=== PATIENT | female | born 1950 | race American Indian/Alaskan Native ===

== ENCOUNTER 2016-09-04 08:58 | Outpatient (CLI) | payer MEDICARE ==
--- NOTE | 2016-09-04 10:13 | Fluoroscopy Report ---
Barium swallow: History: Dysphagia of solids. Findings: There is delayed transit of barium noted through the upper thoracic esophagus. There is spasm noted in the upper thoracic esophagus with mucosal irregularity. No intrinsic mass is seen. There is marked gastroesophageal reflux noted. No hiatal hernia. Impression: Gastroesophageal reflux with evidence of esophagitis and spasm at proximal thoracic esophagus. Esophagoscopy may be recommended for further evaluation.
== END 2016-09-04 08:59 | disposition home or self-care (01) ==
LOC: FLUORO 08:58
PROVIDERS: ATTEND Internal Medicine Gastroenterology
DX: K21.0 Gastro-esophageal reflux disease with esophagitis (principal)
CPT/HCPCS: 74220

== ENCOUNTER 2018-05-29 04:31 | Emergency (ER) | payer MEDICARE ==
[2018-05-29] MEDS ORDERED: ATROVENT IH ONE (04:52)
[2018-05-29] MEDS ORDERED: SOLU-Medrol IV ONE (04:52)
[2018-05-29] MEDS ORDERED: PROVENTIL IH ONE (04:52)
[2018-05-29] MEDS ORDERED: MAGNESIUM SULFATE 1 GM in NACL 0.9% 50 ML IV ONE (04:52)
[2018-05-29 05:07] LABS: Basophils # (Auto) 0.1 K/mm3 (0.0-0.1); Basophils % (Auto) 0.6 % (0.0-1.8); Eosinophils # (Auto) 0.4 K/mm3 (0.0-0.4); Eosinophils % (Auto) 4.1 % (0.0-4.3); Hematocrit 40.9 % (30.3-42.9); Hemoglobin 13.7 gm/dl (10.1-14.3); Lymphocytes # (Auto) 1.6 K/mm3 (1.2-5.4); Lymphocytes % (Auto) 18.9 % (13.4-35.0); Mean Corpuscular HGB Conc 34 % (30-34); Mean Corpuscular Hemoglobin 31 pg (28-32); Mean Corpuscular Volume 91 fl (79-97); Monocytes # (Auto) 0.5 K/mm3 (0.0-0.8); Monocytes % (Auto) 5.5 % (0.0-7.3); Platelet Count 249 K/mm3 (140-440); Red Cell Distribution Width 14.2 % (13.2-15.2)
[2018-05-29 05:29] LABS: BUN/Creatinine Ratio 19; Blood Urea Nitrogen 13 mg/dL (7-17); Calcium 8.8 mg/dL (8.4-10.2); Hemolysis Index 9
[2018-05-29] MEDS ORDERED: NORCO 5/325 PO ONE (05:54)
--- NOTE | 2018-05-29 06:06 | Emergency Department Report ---
ED Shortness of Breath HPI - General Chief Complaint: Dyspnea/Respdistress Stated Complaint: NEREYDA Time Seen by Provider: 05/29/18 04:52 Source: patient, EMS Mode of arrival: Stretcher Limitations: No Limitations - History of Present Illness Initial Comments: Patient is a 68-year-old Female with past medical history of COPD who is here for exacerbation. Patient states she was at [facility] last week and diagnosed with bronchitis and started on steroids. Patient states he does continue to have a cough that is productive of white sputum. Patient states this chest pain with the cough as well. Patient states her chest wall is tender from all the coughing. Patient denies any fevers chills nausea vomiting at this time. - Related Data Home Medications Medication Instructions Recorded Confirmed Last Taken Lisinopril [Zestril TAB] 40 mg PO DAILY@1800 02/23/13 10/07/17 12/19/14 Metoprolol [Lopressor TAB] 100 mg PO DAILY 12/20/14 10/07/17 12/19/14 cloNIDine [Catapres] 0.1 mg PO QID PRN 12/20/14 10/07/17 12/19/14 Amlodipine Besylate [Norvasc] 10 mg PO QAM 04/01/17 10/07/17 Unknown Doxazosin [Cardura] 4 mg PO QDAY 04/01/17 10/07/17 Unknown Ranitidine HCl [Zantac] 300 mg PO HS 04/01/17 10/07/17 03/31/17 Spironolactone [Aldactone] 25 mg PO QAM 04/01/17 10/07/17 Unknown Fluticasone [Flonase] 2 spray NS QDAY 10/07/17 10/07/17 Unknown Umeclidinium Brm/Vilanterol Tr 1 each IH QDAY 10/07/17 10/07/17 Unknown [Anoro Ellipta 62.5-25 Mcg INH] Previous Rx's Medication Instructions Recorded Last Taken Type ALBUTEROL Inhaler (OR & NICU) 2 puff IH Q6H PRN #1 inha 07/04/17 Unknown Rx [ProAir HFA Inhaler] Ipratropium/Albuterol Sulfate 1 ampul IH Q6HRT #30 ampul.neb 07/04/17 Unknown Rx [DUONEB *Not for PRN Use*] Mometasone/Formoterol [Dulera 200 2 puff IH BID #1 hfa.aer.ad 07/04/17 Unknown Rx Mcg/5 Mcg Inhaler] Azithromycin [Zithromax Z-NAVA] 0 mg PO DAILY #1 pack 10/09/17 Unknown Rx Benzonatate [Tessalon Perles] 100 mg PO Q8HR #30 capsule 10/09/17 Unknown Rx HYDROcodone/APAP 10-325 [[place] 1 each PO Q6HR PRN #14 tablet 10/09/17 Unknown Rx 10-325 mg TAB] LORazepam [Ativan] 0.5 mg PO Q4H PRN #14 tablet 10/09/17 Unknown Rx Nicotine [Habitrol] 14 mg TD QDAY #30 patch 10/09/17 Unknown Rx guaiFENesin/CODEINE [Robitussin AC] 5 ml PO Q6H #120 ml 10/09/17 Unknown Rx levoFLOXacin [Levaquin] 750 mg PO QDAY #5 tablet 10/09/17 Unknown Rx predniSONE [Deltasone] 10 mg PO .TAPER #48 tab 10/09/17 Unknown Rx Allergies Allergy/AdvReac Type Severity Reaction Status Date / Time Penicillins Allergy Unknown Verified 08/26/15 09:15 ED Review of Systems ROS: Stated complaint: NERYEDA Other details as noted in HPI Comment: All other systems reviewed and negative ED Past Medical Hx - Past Medical History Previous Medical History?: Yes Hx Hypertension: Yes Hx Heart Attack/AMI: No Hx Congestive Heart Failure: Yes Hx Diabetes: Yes Hx Deep Vein Thrombosis: No Hx Pulmonary Embolism: No Hx GERD: Yes Hx Liver Disease: No Hx Arthritis: Yes Hx Asthma: No Hx COPD: Yes Hx Tuberculosis: No Hx HIV: No Additional medical history: high cholesterol. anxiety. VERTIGO - Surgical History Past Surgical History?: Yes Hx Coronary Stent: No Hx Pacemaker: No Hx Internal Defibrillator: No Additional Surgical History: hysterectomy - Social History Smoking Status: Current Some Day Smoker Substance Use Type: None - Medications Home Medications: Home Medications Medication Instructions Recorded Confirmed Last Taken Type Lisinopril [Zestril TAB] 40 mg PO DAILY@1800 02/23/13 10/07/17 12/19/14 History Metoprolol [Lopressor TAB] 100 mg PO DAILY 12/20/14 10/07/17 12/19/14 History cloNIDine [Catapres] 0.1 mg PO QID PRN 12/20/14 10/07/17 12/19/14 History Amlodipine Besylate [Norvasc] 10 mg PO QAM 04/01/17 10/07/17 Unknown History Doxazosin [Cardura] 4 mg PO QDAY 04/01/17 10/07/17 Unknown History Ranitidine HCl [Zantac] 300 mg PO HS 04/01/17 10/07/17 03/31/17 History Spironolactone [Aldactone] 25 mg PO QAM 04/01/17 10/07/17 Unknown History ALBUTEROL Inhaler (OR & NICU) 2 puff IH Q6H PRN #1 inha 07/04/17 10/07/17 Unknown Rx [ProAir HFA Inhaler] Ipratropium/Albuterol Sulfate 1 ampul IH Q6HRT #30 ampul.neb 07/04/17 10/07/17 Unknown Rx [DUONEB *Not for PRN Use*] Mometasone/Formoterol [Dulera 200 2 puff IH BID #1 hfa.aer.ad 07/04/17 10/07/17 Unknown Rx Mcg/5 Mcg Inhaler] Fluticasone [Flonase] 2 spray NS QDAY 10/07/17 10/07/17 Unknown History Umeclidinium Brm/Vilanterol Tr 1 each IH QDAY 10/07/17 10/07/17 Unknown History [Anoro Ellipta 62.5-25 Mcg INH] Azithromycin [Zithromax Z-NAVA] 0 mg PO DAILY #1 pack 10/09/17 Unknown Rx Benzonatate [Tessalon Perles] 100 mg PO Q8HR #30 capsule 10/09/17 Unknown Rx HYDROcodone/APAP 10-325 [[place] 1 each PO Q6HR PRN #14 tablet 10/09/17 Unknown Rx 10-325 mg TAB] LORazepam [Ativan] 0.5 mg PO Q4H PRN #14 tablet 10/09/17 Unknown Rx Nicotine [Habitrol] 14 mg TD QDAY #30 patch 10/09/17 Unknown Rx guaiFENesin/CODEINE [Robitussin AC] 5 ml PO Q6H #120 ml 05/09/18 Unknown Rx levoFLOXacin [Levaquin] 750 mg PO QDAY #5 tablet 10/09/17 Unknown Rx predniSONE [Deltasone] 10 mg PO .TAPER #48 tab 10/09/17 Unknown Rx ED Physical Exam - General Limitations: No Limitations General appearance: alert, in no apparent distress - Head Head exam: Present: atraumatic, normocephalic - Eye Eye exam: Present: normal appearance - ENT ENT exam: Present: mucous membranes moist - Neck Neck exam: Present: normal inspection - Respiratory Respiratory exam: Present: wheezes, chest wall tenderness. Absent: normal lung sounds bilaterally, respiratory distress, rales, rhonchi, stridor - Cardiovascular Cardiovascular Exam: Present: regular rate, normal rhythm. Absent: systolic murmur, diastolic murmur, rubs, gallop - GI/Abdominal GI/Abdominal exam: Present: soft, normal bowel sounds. Absent: distended, tenderness, guarding, rebound - Extremities Exam Extremities exam: Present: normal inspection - Back Exam Back exam: Present: normal inspection - Neurological Exam Neurological exam: Present: alert, oriented X3 - Psychiatric Psychiatric exam: Present: normal affect, normal mood - Skin Skin exam: Present: warm, dry, intact, normal color. Absent: rash ED Course Vital Signs 05/29/18 04:42 Temperature 97.9 F Pulse Rate 81 Respiratory 20 Rate Blood Pressure 120/54 Blood Pressure 120/54 [Left] O2 Sat by Pulse 98 Oximetry ED Medical Decision Making - Lab Data Result diagrams: 05/29/18 05:01 05/29/18 05:01 - EKG Data -: EKG Interpreted by La - EKG Data 05/29/18 06:06 EKG shows sinus rhythm a rate of 72, waxes no intervals no ST segment elevation or depressions. Interpretation is 528 - Radiology Data Chest x-ray shows no acute process - Medical Decision Making Patient is receiving hour-long never the last treatment. Patient's will be reevaluated afterwards. Patient also has a d-dimer is pending since the patient told the nurse that she was having some pleuritic pain Critical care attestation.: If time is entered above; I have spent that time in minutes in the direct care of this critically ill patient, excluding procedure time. ED Disposition Clinical Impression: COPD exacerbation Condition: Stable Instructions: Chronic Obstructive Pulmonary Disease (ED)
--- NOTE | 2018-05-29 06:21 | XRay Report ---
FINAL REPORT PROCEDURE: XR CHEST 1V AP TECHNIQUE: Chest radiograph anteroposterior view. CPT 56244 HISTORY: cough, wheeze COMPARISON: 10/07/2017 FINDINGS: Heart: Normal. Mediastinum/Vessels: Normal. Lungs/Pleural space: Normal. Bony thorax: No acute osseous abnormality. Life support devices: None. IMPRESSION: No acute cardiopulmonary abnormality.
--- NOTE | 2018-05-29 07:29 | Emergency Department Report ---
Blank Doc - Documentation Documentation: 68-year-old female with history of COPD signed out to me by Dr. Reed. Patient has received albuterol and Atrovent, solu Medrol, magnesium sulfate. The patient currently is in no respiratory distress. Lungs are clear, wheezing resolved. Speaking in full sentences. O2 sats 94% on room air. Chest x-ray normal, d-dimer negative. Patient states she has prednisone at home to take as needed. Instructed the patient to take 40 mg daily for the next 5 days.
[2018-05-29 07:53] VITALS: BP 148/57
== END 2018-05-29 08:13 | disposition home or self-care (01) ==
LOC: ED 04:31
DX: J44.1 Chronic obstructive pulmonary disease with (acute) exacerbation (principal); I11.0 Hypertensive heart disease with heart failure; I50.9 Heart failure, unspecified; E11.9 Type 2 diabetes mellitus without complications; K21.9 Gastro-esophageal reflux disease without esophagitis; M19.90 Unspecified osteoarthritis, unspecified site; E78.00 Pure hypercholesterolemia, unspecified; F41.9 Anxiety disorder, unspecified; F17.200 Nicotine dependence, unspecified, uncomplicated; Z90.710 Acquired absence of both cervix and uterus; Z88.0 Allergy status to penicillin
CPT/HCPCS: 36415; 71045; 80048; 83880; 85025; 85379; 93005; 93010; 94640; 96365; 96375; 99284; J2930; J3475

== ENCOUNTER 2019-07-01 09:43 | Observation (INO) | payer MEDICARE ==
[2019-07-01] MEDS ORDERED: ASPIRIN 325 MG TAB PO ONE (09:52)
[2019-07-01 10:25] LABS: Basophils # (Auto) 0.2 K/mm3 (0.0-0.1); Eosinophils # (Auto) 0.1 K/mm3 (0.0-0.4); Eosinophils % (Auto) 1.6 % (0.0-4.3); Hematocrit 37.5 % (30.3-42.9); Hemoglobin 12.4 gm/dl (10.1-14.3); Lymphocytes # (Auto) 3.5 K/mm3 (1.2-5.4); Lymphocytes % (Auto) 43.9 % (13.4-35.0); Mean Corpuscular HGB Conc 33 % (30-34); Mean Corpuscular Volume 90 fl (79-97); Monocytes # (Auto) 0.5 K/mm3 (0.0-0.8); Monocytes % (Auto) 6.4 % (0.0-7.3); Platelet Count 291 K/mm3 (140-440); Red Blood Count 4.19 M/mm3 (3.65-5.03); Red Cell Distribution Width 14.7 % (13.2-15.2)
[2019-07-01 10:47] LABS: BUN/Creatinine Ratio 15; Blood Urea Nitrogen 12 mg/dL (7-17); Calcium 9.7 mg/dL (8.4-10.2); Hemolysis Index 162
[2019-07-01 11:02] LABS: INR 1.04 (0.87-1.13)
[2019-07-01 11:03] LABS: Partial Thromboplastin Time 33.9 Sec. (24.2-36.6)
--- NOTE | 2019-07-01 11:07 | XRay Report ---
CHEST 1 VIEW INDICATION / CLINICAL INFORMATION: Chest Pain. COMPARISON: 06/05/2018 FINDINGS: SUPPORT DEVICES: None. HEART / MEDIASTINUM: No significant abnormality. LUNGS / PLEURA: No significant pulmonary or pleural abnormality. No pneumothorax. ADDITIONAL FINDINGS: No significant additional findings. IMPRESSION: No acute pulmonary or pleural abnormality. No change from 06/05/2018 Signer Name: Nilesh Ordonez MD FACR Signed: 07/01/2019 11:03 AM Workstation Name: [id number]
[2019-07-01 11:08] LABS: Creatine Kinase MB 1.4 ng/mL (0.0-4.0)
[2019-07-01 11:10] LABS: Alanine Aminotransferase 17 units/L (7-56); Albumin 3.8 g/dL (3.9-5)
[2019-07-01 11:11] LABS: Bilirubin,Direct < 0.2 mg/dL (0-0.2)
--- NOTE | 2019-07-01 11:35 | Emergency Department Report ---
ED General Adult HPI - General Chief complaint: Chest Pain Stated complaint: A1C 4 Time Seen by Provider: 07/01/19 10:01 Source: patient Mode of arrival: Ambulatory Limitations: No Limitations - History of Present Illness Severity scale (0 -10): 8 - Related Data Home Medications Medication Instructions Recorded Confirmed Last Taken lisinopriL [Zestril TAB] 40 mg PO DAILY@1800 02/23/13 06/05/18 05/28/18 Metoprolol [Lopressor TAB] 100 mg PO DAILY 12/20/14 06/05/18 05/28/18 cloNIDine [Catapres] 0.1 mg PO QID PRN 12/20/14 06/05/18 12/19/14 Amlodipine Besylate [Norvasc] 10 mg PO QAM 04/01/17 06/05/18 05/28/18 Doxazosin [Cardura] 4 mg PO QDAY 04/01/17 06/05/18 05/28/18 Spironolactone [Aldactone] 25 mg PO QAM 04/01/17 06/05/18 05/28/18 Fluticasone [Flonase] 2 spray NS QDAY 10/07/17 06/05/18 05/28/18 Umeclidinium Brm/Vilanterol Tr 1 each IH QDAY 10/07/17 06/05/18 05/28/18 [Anoro Ellipta 62.5-25 Mcg INH] Ativan 1 mg .ROUTE TID PRN 06/05/18 06/05/18 06/03/18 21:00 predniSONE [Deltasone] 10 mg PO .TAPER 06/05/18 06/05/18 Unknown Previous Rx's Medication Instructions Recorded Last Taken Type Albuterol INH(or & Nicu Only) 2 puff IH Q6H PRN #1 inha 07/04/17 05/28/18 Rx [ProAir HFA Inhaler] Ipratropium/Albuterol Sulfate 1 ampul IH Q6HRT #30 ampul.neb 07/04/17 05/28/18 Rx [DUONEB *Not for PRN Use*] Mometasone/Formoterol [Dulera 200 2 puff IH BID #1 hfa.aer.ad 07/04/17 05/28/18 Rx Mcg/5 Mcg Inhaler] Benzonatate [Tessalon Perles] 100 mg PO Q8HR #30 capsule 10/09/17 05/28/18 Rx Azithromycin [Zithromax TAB] 250 mg PO QDAY #2 tablet 06/09/18 Unknown Rx Budesonide [Pulmicort Respules] 0.5 mg IH Q12HRT #60 nebu 06/09/18 Unknown Rx Pantoprazole [Protonix TAB] 40 mg PO QDAY #30 tablet 06/09/18 Unknown Rx Prednisone [predniSONE 10 mg 10 mg PO .TAPER #1 tab.ds.pk 06/09/18 Unknown Rx (6-Day Pack, 21 Tabs)] cephALEXin [Keflex] 500 mg PO Q6HR #28 capsule 06/09/18 Unknown Rx Allergies Allergy/AdvReac Type Severity Reaction Status Date / Time Penicillins Allergy Unknown Verified 08/26/15 09:15 ED Review of Systems ROS: Stated complaint: A1C 4 Other details as noted in HPI ED Past Medical Hx - Past Medical History Previous Medical History?: Yes Hx Hypertension: Yes Hx Heart Attack/AMI: No Hx Congestive Heart Failure: Yes Hx Diabetes: Yes Hx Deep Vein Thrombosis: No Hx Pulmonary Embolism: No Hx GERD: Yes Hx Liver Disease: No Hx Arthritis: Yes Hx Asthma: No Hx COPD: Yes Hx Tuberculosis: No Hx HIV: No Additional medical history: high cholesterol. anxiety. VERTIGO - Surgical History Past Surgical History?: Yes Hx Coronary Stent: No Hx Pacemaker: No Hx Internal Defibrillator: No Additional Surgical History: hysterectomy - Social History Smoking Status: Light Tobacco Smoker - Medications Home Medications: Home Medications Medication Instructions Recorded Confirmed Last Taken Type lisinopriL [Zestril TAB] 40 mg PO DAILY@1800 02/23/13 06/05/18 05/28/18 History Metoprolol [Lopressor TAB] 100 mg PO DAILY 12/20/14 06/05/18 05/28/18 History cloNIDine [Catapres] 0.1 mg PO QID PRN 12/20/14 06/05/18 12/19/14 History Amlodipine Besylate [Norvasc] 10 mg PO QAM 04/01/17 06/05/18 05/28/18 History Doxazosin [Cardura] 4 mg PO QDAY 04/01/17 06/05/18 05/28/18 History Spironolactone [Aldactone] 25 mg PO QAM 04/01/17 06/05/18 05/28/18 History Albuterol INH(or & Nicu Only) 2 puff IH Q6H PRN #1 inha 07/04/17 06/05/18 05/28/18 Rx [ProAir HFA Inhaler] Ipratropium/Albuterol Sulfate 1 ampul IH Q6HRT #30 ampul.neb 07/04/17 06/05/18 05/28/18 Rx [DUONEB *Not for PRN Use*] Mometasone/Formoterol [Dulera 200 2 puff IH BID #1 hfa.aer.ad 07/04/17 06/05/18 05/28/18 Rx Mcg/5 Mcg Inhaler] Fluticasone [Flonase] 2 spray NS QDAY 10/07/17 06/05/18 05/28/18 History Umeclidinium Brm/Vilanterol Tr 1 each IH QDAY 10/07/17 06/05/18 05/28/18 History [Anoro Ellipta 62.5-25 Mcg INH] Benzonatate [Tessalon Perles] 100 mg PO Q8HR #30 capsule 10/09/17 06/05/18 05/28/18 Rx Ativan 1 mg .ROUTE TID PRN 06/05/18 06/05/18 06/03/18 21:00 History predniSONE [Deltasone] 10 mg PO .TAPER 06/05/18 06/05/18 Unknown History Azithromycin [Zithromax TAB] 250 mg PO QDAY #2 tablet 06/09/18 Unknown Rx Budesonide [Pulmicort Respules] 0.5 mg IH Q12HRT #60 nebu 06/09/18 Unknown Rx Pantoprazole [Protonix TAB] 40 mg PO QDAY #30 tablet 06/09/18 Unknown Rx Prednisone [predniSONE 10 mg 10 mg PO .TAPER #1 tab.ds.pk 06/09/18 Unknown Rx (6-Day Pack, 21 Tabs)] cephALEXin [Keflex] 500 mg PO Q6HR #28 capsule 06/09/18 Unknown Rx ED Physical Exam - General Limitations: No Limitations ED Course Vital Signs 07/01/19 07/01/19 10:10 10:16 Pulse Rate 82 Respiratory 15 Rate Blood Pressure 152/117 [Right] O2 Sat by Pulse 98 100 Oximetry ED Medical Decision Making - Lab Data Result diagrams: 07/01/19 10:03 07/01/19 10:03 Laboratory Results - last 24 hr 07/01/19 07/01/19 07/01/19 10:03 10:03 10:09 WBC 8.1 RBC 4.19 Hgb 12.4 Hct 37.5 MCV 90 MCH 30 MCHC 33 RDW 14.7 Plt Count 291 Lymph % (Auto) 43.9 H [place] % (Auto) 6.4 Eos % (Auto) 1.6 Baso % (Auto) 2.0 H Lymph # 3.5 [place] # 0.5 Eos # 0.1 Baso # 0.2 H Seg Neutrophils % 46.1 Seg Neutrophils # 3.7 PT INR APTT Sodium 142 Potassium 4.4 Chloride 103.7 Carbon Dioxide 21 L Anion Gap 22 BUN 12 Creatinine 0.8 Estimated GFR > 60 BUN/Creatinine Ratio 15 Glucose 110 H Calcium 9.7 Magnesium Total Bilirubin Direct Bilirubin AST ALT Alkaline Phosphatase Total Creatine Kinase CK-MB (CK-2) CK-MB (CK-2) Rel Index Troponin T < 0.010 NT-Pro-B Natriuret Pep Total Protein Albumin Albumin/Globulin Ratio Blood Type A POSITIVE Antibody Screen Negative 07/01/19 07/01/19 10:27 10:27 WBC RBC Hgb Hct MCV MCH MCHC RDW Plt Count Lymph % (Auto) [place] % (Auto) Eos % (Auto) Baso % (Auto) Lymph # [place] # Eos # Baso # Seg Neutrophils % Seg Neutrophils # PT 13.7 INR 1.04 APTT 33.9 Sodium Potassium Chloride Carbon Dioxide Anion Gap BUN Creatinine Estimated GFR BUN/Creatinine Ratio Glucose Calcium Magnesium 1.80 Total Bilirubin 0.30 Direct Bilirubin < 0.2 AST 17 ALT 17 Alkaline Phosphatase 55 Total Creatine Kinase 135 CK-MB (CK-2) 1.4 CK-MB (CK-2) Rel Index 1.0 Troponin T NT-Pro-B Natriuret Pep 63.09 Total Protein 6.8 Albumin 3.8 L Albumin/Globulin Ratio 1.3 Blood Type Antibody Screen Critical care attestation.: If time is entered above; I have spent that time in minutes in the direct care of this critically ill patient, excluding procedure time. ED Disposition Condition: Stable Referrals: PRIMARY CARE, [Primary Care Provider] - 3-5 Days
[2019-07-01 12:20] LABS: Bacteria,Urine 1+ /HPF (Negative); Mucus,Urine FEW /HPF; WBC,Urine < 1.0 /HPF (0.0-6.0)
[2019-07-01 12:21] LABS: Bilirubin,Urine NEG (Negative); Blood,Urine NEG (Negative); Color,Urine Yellow (Yellow); Protein,Urine <15 mg/dL mg/dL (Negative); Urobilinogen,Urine < 2.0 mg/dL (<2.0)
[2019-07-01] MEDS ORDERED: PANTOPRAZOLE 40 MG INJ IV ONE (12:48)
[2019-07-01] MEDS ORDERED: MORPHINE 2 MG/1 ML INJ IV ONE (12:48)
[2019-07-01] MEDS ORDERED: ONDANSETRON 4 MG/2 ML INJ IV ONE (12:48)
--- NOTE | 2019-07-01 12:51 | Emergency Department Report ---
ED Chest Pain HPI - General Chief Complaint: Chest Pain Stated Complaint: A1C 4 Time Seen by Provider: 07/01/19 10:01 Source: patient Mode of arrival: Ambulatory Limitations: No Limitations - History of Present Illness Initial Comments: This is a 69-year-old female with a history of COPD and some previous office- based evaluation for chest pain. She was recently admitted to this hospital with a pulmonary infiltrate. As per the discharge summary earlier this month: - Discharge Diagnoses (1) Acute respiratory failure with hypoxia Status: Acute (2) COPD exacerbation Status: Acute (3) On home O2 Status: Chronic (4) Pneumonia Status: Acute Qualifiers: Laterality: right Lung location: lower lobe of lung (5) Acute on chronic respiratory failure with hypoxemia Status: Acute (6) COPD exacerbation Status: Acute (7) Nicotine dependence unspecified, with withdrawal Status: Acute Qualifiers: Nicotine product type: cigarettes Qualified Code(s): F17.213 - Nicotine dependence, cigarettes, with withdrawal She reports seeing [place] [facility] in the past for evaluation of chest pain. She does not think she's had a heart catheterization. She does not have a known history of coronary artery disease. She has multiple risk factors to her diabetes hypertension and smoking. She states that extensively she was sent by Dr. Acosta because she had a hemoglobin of 4.3/13.8 in their office. However, laboratory testing here did not replicate this reading. The patient states that she has been having chest pain intermittently for quite some time. She states that she does not know if it secondary to her COPD or her reflux. However it is a short associated with shortness of breath and feels like "an elephant on my chest" in the substernal region. She states that she is currently having chest pain of this nature. However, it is been a very recurrent process. The pain is nonpleuritic and nonexertional in nature. Patient also complains of exacerbation of COPD and her reflux. She further complains of generalized weakness. She denies recent fever or chills. MD Complaint: chest pain -: month(s) Onset: during rest Pain Location: substernal Pain Radiation: none Severity: moderate, severe Severity scale (0 -10): 8 Quality: heaviness Consistency: constant Improves With: nothing Worsens With: nothing Context: other (COPD/reflux) re: dyspnea. denies: nausea, vomting, diaphoresis Other Symptoms: cough. denies: fever, syncope Treatments Prior to Arrival: none - Related Data Home Medications Medication Instructions Recorded Confirmed Last Taken lisinopriL [Zestril TAB] 40 mg PO DAILY@1800 02/23/13 06/05/18 05/28/18 Metoprolol [Lopressor TAB] 100 mg PO DAILY 12/20/14 06/05/18 05/28/18 cloNIDine [Catapres] 0.1 mg PO QID PRN 12/20/14 06/05/18 12/19/14 Amlodipine Besylate [Norvasc] 10 mg PO QAM 04/01/17 06/05/18 05/28/18 Doxazosin [Cardura] 4 mg PO QDAY 04/01/17 06/05/18 05/28/18 Spironolactone [Aldactone] 25 mg PO QAM 04/01/17 06/05/18 05/28/18 Fluticasone [Flonase] 2 spray NS QDAY 10/07/17 06/05/18 05/28/18 Umeclidinium Brm/Vilanterol Tr 1 each IH QDAY 10/07/17 06/05/18 05/28/18 [Anoro Ellipta 62.5-25 Mcg INH] Ativan 1 mg .ROUTE TID PRN 06/05/18 06/05/18 06/03/18 21:00 predniSONE [Deltasone] 10 mg PO .TAPER 06/05/18 06/05/18 Unknown Previous Rx's Medication Instructions Recorded Last Taken Type Albuterol INH(or & Nicu Only) 2 puff IH Q6H PRN #1 inha 07/04/17 05/28/18 Rx [ProAir HFA Inhaler] Ipratropium/Albuterol Sulfate 1 ampul IH Q6HRT #30 ampul.neb 07/04/17 05/28/18 Rx [DUONEB *Not for PRN Use*] Mometasone/Formoterol [Dulera 200 2 puff IH BID #1 hfa.aer.ad 07/04/17 05/28/18 Rx Mcg/5 Mcg Inhaler] Benzonatate [Tessalon Perles] 100 mg PO Q8HR #30 capsule 10/09/17 05/28/18 Rx Azithromycin [Zithromax TAB] 250 mg PO QDAY #2 tablet 06/09/18 Unknown Rx Budesonide [Pulmicort Respules] 0.5 mg IH Q12HRT #60 nebu 06/09/18 Unknown Rx Pantoprazole [Protonix TAB] 40 mg PO QDAY #30 tablet 06/09/18 Unknown Rx Prednisone [predniSONE 10 mg 10 mg PO .TAPER #1 tab.ds.pk 06/09/18 Unknown Rx (6-Day Pack, 21 Tabs)] cephALEXin [Keflex] 500 mg PO Q6HR #28 capsule 06/09/18 Unknown Rx Allergies Allergy/AdvReac Type Severity Reaction Status Date / Time Penicillins Allergy Unknown Verified 08/26/15 09:15 Heart Score - HEART Score History: Highly suspicious EKG: Non-specific Age: > 65 Risk factors: > 3 risk factors or hx of atherosclerotic disease Troponin: < normal limit HEART Score: 7 - Critical Actions Critical Actions: >7 pts:50-65% risk of adverse cardiac event. Early invasive measures ED Review of Systems ROS: Stated complaint: A1C 4 Other details as noted in HPI Constitutional: denies: chills, fever Eyes: denies: eye pain, eye discharge, vision change ENT: denies: ear pain, throat pain Respiratory: cough, shortness of breath. denies: wheezing Cardiovascular: chest pain. denies: palpitations Endocrine: no symptoms reported Gastrointestinal: denies: abdominal pain, nausea, diarrhea Genitourinary: denies: urgency, dysuria, discharge Musculoskeletal: denies: back pain, joint swelling, arthralgia Skin: denies: rash, lesions Neurological: denies: headache, weakness, paresthesias Psychiatric: denies: anxiety, depression Hematological/Lymphatic: denies: easy bleeding, easy bruising ED Past Medical Hx - Past Medical History Previous Medical History?: Yes Hx Hypertension: Yes Hx Heart Attack/AMI: No Hx Congestive Heart Failure: Yes Hx Diabetes: Yes Hx Deep Vein Thrombosis: No Hx Pulmonary Embolism: No Hx GERD: Yes Hx Liver Disease: No Hx Arthritis: Yes Hx Asthma: No Hx COPD: Yes Hx Tuberculosis: No Hx HIV: No Additional medical history: high cholesterol. anxiety. VERTIGO - Surgical History Past Surgical History?: Yes Hx Coronary Stent: No Hx Pacemaker: No Hx Internal Defibrillator: No Additional Surgical History: hysterectomy - Social History Smoking Status: Light Tobacco Smoker - Medications Home Medications: Home Medications Medication Instructions Recorded Confirmed Last Taken Type lisinopriL [Zestril TAB] 40 mg PO DAILY@1800 02/23/13 06/05/18 05/28/18 History Metoprolol [Lopressor TAB] 100 mg PO DAILY 12/20/14 06/05/18 05/28/18 History cloNIDine [Catapres] 0.1 mg PO QID PRN 12/20/14 06/05/18 12/19/14 History Amlodipine Besylate [Norvasc] 10 mg PO QAM 04/01/17 06/05/18 05/28/18 History Doxazosin [Cardura] 4 mg PO QDAY 04/01/17 06/05/18 05/28/18 History Spironolactone [Aldactone] 25 mg PO QAM 04/01/17 06/05/18 05/28/18 History Albuterol INH(or & Nicu Only) 2 puff IH Q6H PRN #1 inha 07/04/17 06/05/18 05/28/18 Rx [ProAir HFA Inhaler] Ipratropium/Albuterol Sulfate 1 ampul IH Q6HRT #30 ampul.neb 07/04/17 06/05/18 05/28/18 Rx [DUONEB *Not for PRN Use*] Mometasone/Formoterol [Dulera 200 2 puff IH BID #1 hfa.aer.ad 07/04/17 06/05/18 05/28/18 Rx Mcg/5 Mcg Inhaler] Fluticasone [Flonase] 2 spray NS QDAY 10/07/17 06/05/18 05/28/18 History Umeclidinium Brm/Vilanterol Tr 1 each IH QDAY 10/07/17 06/05/18 05/28/18 History [Anoro Ellipta 62.5-25 Mcg INH] Benzonatate [Tessalon Perles] 100 mg PO Q8HR #30 capsule 10/09/17 06/05/18 05/28/18 Rx Ativan 1 mg .ROUTE TID PRN 06/05/18 06/05/18 06/03/18 21:00 History predniSONE [Deltasone] 10 mg PO .TAPER 06/05/18 06/05/18 Unknown History Azithromycin [Zithromax TAB] 250 mg PO QDAY #2 tablet 06/09/18 Unknown Rx Budesonide [Pulmicort Respules] 0.5 mg IH Q12HRT #60 nebu 06/09/18 Unknown Rx Pantoprazole [Protonix TAB] 40 mg PO QDAY #30 tablet 06/09/18 Unknown Rx Prednisone [predniSONE 10 mg 10 mg PO .TAPER #1 tab.ds.pk 06/09/18 Unknown Rx (6-Day Pack, 21 Tabs)] cephALEXin [Keflex] 500 mg PO Q6HR #28 capsule 06/09/18 Unknown Rx ED Physical Exam - General Limitations: No Limitations General appearance: alert, in no apparent distress - Head Head exam: Present: atraumatic, normocephalic - Eye Eye exam: Present: normal appearance. Absent: scleral icterus - ENT ENT exam: Present: mucous membranes moist - Neck Neck exam: Present: normal inspection. Absent: tenderness, meningismus - Respiratory Respiratory exam: Present: normal lung sounds bilaterally, rhonchi (slight end expiratory rhonchi/wheezing). Absent: respiratory distress - Cardiovascular Cardiovascular Exam: Present: regular rate, normal rhythm. Absent: systolic murmur, diastolic murmur, rubs, gallop - GI/Abdominal GI/Abdominal exam: Present: soft, normal bowel sounds. Absent: distended, tenderness, guarding, rebound, rigid - Extremities Exam Extremities exam: Present: normal inspection - Back Exam Back exam: Present: normal inspection - Neurological Exam Neurological exam: Present: alert, oriented X3, CN II-XII intact. Absent: motor sensory deficit - Psychiatric Psychiatric exam: Present: normal affect, anxious - Skin Skin exam: Present: warm, dry, intact, normal color. Absent: rash ED Course Vital Signs 07/01/19 07/01/19 07/01/19 10:05 10:10 10:16 Pulse Rate 82 82 82 Respiratory 18 15 17 Rate Blood Pressure 152/117 Blood Pressure 152/117 [Right] O2 Sat by Pulse 98 100 Oximetry 07/01/19 07/01/19 07/01/19 10:30 10:46 11:00 Pulse Rate 72 80 83 Respiratory 11 L 17 16 Rate Blood Pressure 152/117 188/77 188/77 Blood Pressure [Right] O2 Sat by Pulse Oximetry 0107/01/19 07/01/19 11:16 11:30 11:46 Pulse Rate 74 70 76 Respiratory 20 15 19 Rate Blood Pressure 187/70 187/70 206/82 Blood Pressure [Right] O2 Sat by Pulse Oximetry 07/01/19 07/01/19 07/01/19 12:00 12:16 12:30 Pulse Rate 83 77 78 Respiratory 22 21 17 Rate Blood Pressure 206/82 198/75 206/82 Blood Pressure [Right] O2 Sat by Pulse Oximetry 07/01/19 12:46 Pulse Rate 79 Respiratory 20 Rate Blood Pressure 153/69 Blood Pressure [Right] O2 Sat by Pulse Oximetry - Reevaluation(s) Reevaluation #1: The patient remained hemodynamically stable. Her blood pressure was variable. Her hemoglobin was fine. She was admitted for further evaluation of her chest pain. She was given morphine and Protonix. She'll be admitted by Dr. Goodson. She will be given a neb. 07/01/19 12:54 FREDDY score - Freddy Score Age > 65: (0) No Aspirin use within the Past 7 Days: (1) Yes 3 or more CAD Risk Factors: (1) Yes 2 or more Angina events in past 24 hrs: (0) No Known CAD with more than 50% Stenosis: (0) No Elevated Cardiac Markers: (0) No ST Deviation Greater than 0.5mm: (0) No FREDDY Score: 2 ED Medical Decision Making - Lab Data Result diagrams: 07/01/19 10:03 07/01/19 10:03 Laboratory Results - last 24 hr 07/01/19 07/01/19 07/01/19 10:03 10:03 10:09 WBC 8.1 RBC 4.19 Hgb 12.4 Hct 37.5 MCV 90 MCH 30 MCHC 33 RDW 14.7 Plt Count 291 Lymph % (Auto) 43.9 H [place] % (Auto) 6.4 Eos % (Auto) 1.6 Baso % (Auto) 2.0 H Lymph # 3.5 [place] # 0.5 Eos # 0.1 Baso # 0.2 H Seg Neutrophils % 46.1 Seg Neutrophils # 3.7 PT INR APTT Sodium 142 Potassium 4.4 Chloride 103.7 Carbon Dioxide 21 L Anion Gap 22 BUN 12 Creatinine 0.8 Estimated GFR > 60 BUN/Creatinine Ratio 15 Glucose 110 H Calcium 9.7 Magnesium Total Bilirubin Direct Bilirubin AST ALT Alkaline Phosphatase Total Creatine Kinase CK-MB (CK-2) CK-MB (CK-2) Rel Index Troponin T < 0.010 NT-Pro-B Natriuret Pep Total Protein Albumin Albumin/Globulin Ratio Lipase Urine Color Urine Turbidity Urine pH Ur Specific [place] Urine Protein Urine Glucose (UA) Urine Ketones Urine Blood Urine Nitrite Ur Reducing Substances Urine Bilirubin Urine Ictotest Urine Urobilinogen Ur Leukocyte Esterase Urine WBC (Auto) Urine RBC (Auto) U Epithel Cells (Auto) Urine Bacteria (Auto) Urine Mucus Blood Type A POSITIVE Antibody Screen Negative 07/01/19 07/01/19 07/01/19 10:27 10:27 10:27 WBC RBC Hgb Hct MCV MCH MCHC RDW Plt Count Lymph % (Auto) [place] % (Auto) Eos % (Auto) Baso % (Auto) Lymph # [place] # Eos # Baso # Seg Neutrophils % Seg Neutrophils # PT 13.7 INR 1.04 APTT 33.9 Sodium Potassium Chloride Carbon Dioxide Anion Gap BUN Creatinine Estimated GFR BUN/Creatinine Ratio Glucose Calcium Magnesium 1.80 Total Bilirubin 0.30 Direct Bilirubin < 0.2 AST 17 ALT 17 Alkaline Phosphatase 55 Total Creatine Kinase 135 CK-MB (CK-2) 1.4 CK-MB (CK-2) Rel Index 1.0 Troponin T NT-Pro-B Natriuret Pep 63.09 Total Protein 6.8 Albumin 3.8 L Albumin/Globulin Ratio 1.3 Lipase 26 Urine Color Urine Turbidity Urine pH Ur Specific [place] Urine Protein Urine Glucose (UA) Urine Ketones Urine Blood Urine Nitrite Ur Reducing Substances Urine Bilirubin Urine Ictotest Urine Urobilinogen Ur Leukocyte Esterase Urine WBC (Auto) Urine RBC (Auto) U Epithel Cells (Auto) Urine Bacteria (Auto) Urine Mucus Blood Type Antibody Screen 07/01/19 12:04 WBC RBC Hgb Hct MCV MCH MCHC RDW Plt Count Lymph % (Auto) [place] % (Auto) Eos % (Auto) Baso % (Auto) Lymph # [place] # Eos # Baso # Seg Neutrophils % Seg Neutrophils # PT INR APTT Sodium Potassium Chloride Carbon Dioxide Anion Gap BUN Creatinine Estimated GFR BUN/Creatinine Ratio Glucose Calcium Magnesium Total Bilirubin Direct Bilirubin AST ALT Alkaline Phosphatase Total Creatine Kinase CK-MB (CK-2) CK-MB (CK-2) Rel Index Troponin T NT-Pro-B Natriuret Pep Total Protein Albumin Albumin/Globulin Ratio Lipase Urine Color Yellow Urine Turbidity Slightly-cloudy Urine pH 5.0 Ur Specific [place] 1.016 Urine Protein <15 mg/dl Urine Glucose (UA) Neg Urine Ketones Neg Urine Blood Neg Urine Nitrite Neg Ur Reducing Substances Not Reportable Urine Bilirubin Neg Urine Ictotest Not Reportable Urine Urobilinogen < 2.0 Ur Leukocyte Esterase Neg Urine WBC (Auto) < 1.0 Urine RBC (Auto) 1.0 U Epithel Cells (Auto) 8.0 Urine Bacteria (Auto) 1+ Urine Mucus Few Blood Type Antibody Screen - EKG Data -: EKG Interpreted by Dc EKG shows normal: sinus rhythm Rate: normal - EKG Data Interpretation: other (left axis deviation. No acute repolarization abnormality. ) - Radiology Data Radiology results: report reviewed (chest x-ray no acute process) Critical care attestation.: If time is entered above; I have spent that time in minutes in the direct care of this critically ill patient, excluding procedure time. ED Disposition Clinical Impression: Uncontrolled hypertension, COPD exacerbation Chest pain Qualifiers: Chest pain type: unspecified Qualified Code(s): R07.9 - Chest pain, unspecified Disposition: OP ADMIT IP TO THIS HOSP Is pt being admited?: Yes Does the pt Need Aspirin: Yes Condition: Stable Instructions: Chest Pain (ED), Hypertension (ED), Chronic Obstructive Pulmonary Disease (ED) Referrals: PRIMARY CARE, [Primary Care Provider] - 3-5 Days Time of Disposition: 13:02
[2019-07-01] MEDS ORDERED: IPRATROPIUM/ALBUTEROL SULFATE 3 ML AMPUL.NEB IH ONE (12:58)
[2019-07-01] MEDS ORDERED: NITROGLYCERIN 2% OINT 1 GM TP ONE (13:01)
[2019-07-01 14:42] LABS: Free T4 (Free Thyroxine) 1.02 ng/dL (0.76-1.46)
[2019-07-01] MEDS ORDERED: ALBUTEROL 8.5 GM INHALATION IH PRN (18:11)
[2019-07-01] MEDS ORDERED: APAP PO PRN (18:11)
[2019-07-01] MEDS ORDERED: HYDROCODONE PO PRN (18:11)
[2019-07-01] MEDS ORDERED: ATIVAN 1 MG PO PRN (18:11)
[2019-07-01] MEDS ORDERED: NON-FORMULARY EACH (Umeclidinium Brm/Vilanterol Tr [Anoro Ellipta 62.5-25 Mcg Inh] 1 EACH) IH SCH (18:15)
--- NOTE | 2019-07-01 18:21 | History and Physical Report ---
History of Present Illness Date of examination: 07/01/19 Date of admission: 07/01/19 13:03 Medications and Allergies Allergies Allergy/AdvReac Type Severity Reaction Status Date / Time Penicillins Allergy Unknown Verified 08/26/15 09:15 Home Medications Medication Instructions Recorded Confirmed Last Taken Type lisinopriL [Zestril TAB] 40 mg PO DAILY@1800 02/23/13 07/01/19 06/30/19 18:00 History Amlodipine Besylate [Norvasc] 10 mg PO QAM 04/01/17 07/01/19 07/01/19 07:00 History Albuterol INH(or & Nicu Only) 2 puff IH Q6H PRN #1 inha 07/04/17 07/01/19 06/30/19 21:00 Rx [ProAir HFA Inhaler] Ipratropium/Albuterol Sulfate 1 ampul IH Q6HRT #30 ampul.neb 07/04/17 07/01/19 06/30/19 21:00 Rx [DUONEB *Not for PRN Use*] Mometasone/Formoterol [Dulera 200 2 puff IH BID #1 hfa.aer.ad 07/04/17 07/01/19 07/01/19 07:00 Rx Mcg/5 Mcg Inhaler] Umeclidinium Brm/Vilanterol Tr 1 each IH QDAY 10/07/17 07/01/19 07/01/19 07:00 History [Anoro Ellipta 62.5-25 Mcg INH] Ativan 1 mg .ROUTE TID PRN 06/05/18 07/01/19 06/26/19 10:00 History Pantoprazole [Protonix TAB] 40 mg PO QDAY #30 tablet 06/09/18 07/01/19 Unknown Rx HYDROcodone/APAP 10-325 1 tab PO Q6H PRN 07/01/19 07/01/19 Unknown History Simvastatin 40 mg PO HS 07/01/19 07/01/19 06/30/19 21:00 History metFORMIN [Glucophage] 500 mg PO HS 07/01/19 07/01/19 06/30/19 21:00 History Active Meds: Active Medications Albuterol (Proair) 2 puff IH Q6H PRN PRN Reason: Shortness Of Breath Albuterol/Ipratropium (Duoneb *Not For Prn Use*) 1 ampul IH Q6HRT EVETTE Amlodipine Besylate (Amlodipine) 10 mg PO QAM EVETTE Lisinopril (Zestril) 40 mg PO DAILY@1800 EVETTE Metformin HCl (Glucophage) 500 mg PO HS EVETTE Miscellaneous Medication (Ativan) 1 mg .ROUTE TID PRN PRN Reason: Anxiety Miscellaneous Medication (Hydrocodone/Apap 10-325) 1 tab PO Q6H PRN PRN Reason: Pain , Severe (7-10) Miscellaneous Medication (Mometasone/Formoterol [Dulera 200 Mcg/5 Mcg Inhaler]) 2 puff IH BID EEVTTE Miscellaneous Medication (Simvastatin [Simvastatin]) 40 mg PO HS EVETTE Miscellaneous Medication (Umeclidinium Brm/Vilanterol Tr [Anoro Ellipta 62.5-25 Mcg Inh]) 1 each IH QDAY EVETTE Pantoprazole Sodium (Protonix) 40 mg PO QDAY EVETTE Pneumococcal Polyvalent Vaccine (Pneumovax 23) 0.5 ml IM .ONCE ONE Stop: 07/02/19 12:01 Exam - Constitutional Vitals: Temp Pulse Resp BP Pulse Ox 97.8 F 77 24 131/59 99 07/01/19 14:52 07/01/19 15:20 07/01/19 15:20 07/01/19 15:20 07/01/19 14:52 FREDDY score - Freddy Score Age > 65: (0) No Aspirin use within the Past 7 Days: (1) Yes 3 or more CAD Risk Factors: (1) Yes 2 or more Angina events in past 24 hrs: (0) No Known CAD with more than 50% Stenosis: (0) No Elevated Cardiac Markers: (0) No ST Deviation Greater than 0.5mm: (0) No FREDDY Score: 2 Results - Labs CBC & Chem 7: 07/01/19 10:03 07/01/19 10:03 Labs: Laboratory Last Values WBC 8.1 K/mm3 (4.5-11.0) 07/01/19 10:03 RBC 4.19 M/mm3 (3.65-5.03) 07/01/19 10:03 Hgb 12.4 gm/dl (10.1-14.3) 07/01/19 10:03 Hct 37.5 % (30.3-42.9) 07/01/19 10:03 MCV 90 fl (79-97) 07/01/19 10:03 MCH 30 pg (28-32) 07/01/19 10:03 MCHC 33 % (30-34) 07/01/19 10:03 RDW 14.7 % (13.2-15.2) 07/01/19 10:03 Plt Count 291 K/mm3 (140-440) 07/01/19 10:03 Lymph % (Auto) 43.9 % (13.4-35.0) H 07/01/19 10:03 [place] % (Auto) 6.4 % (0.0-7.3) 07/01/19 10:03 Eos % (Auto) 1.6 % (0.0-4.3) 07/01/19 10:03 Baso % (Auto) 2.0 % (0.0-1.8) H 07/01/19 10:03 Lymph # 3.5 K/mm3 (1.2-5.4) 07/01/19 10:03 [place] # 0.5 K/mm3 (0.0-0.8) 07/01/19 10:03 Eos # 0.1 K/mm3 (0.0-0.4) 07/01/19 10:03 Baso # 0.2 K/mm3 (0.0-0.1) H 07/01/19 10:03 Seg Neutrophils % 46.1 % (40.0-70.0) 07/01/19 10:03 Seg Neutrophils # 3.7 K/mm3 (1.8-7.7) 07/01/19 10:03 PT 13.7 Sec. (12.2-14.9) 07/01/19 10: INR 1.04 (0.87-1.13) 07/01/19 10:27 APTT 33.9 Sec. (24.2-36.6) 07/01/19 10:27 Sodium 142 mmol/L (137-145) 07/01/19 10:03 Potassium 4.4 mmol/L (3.6-5.0) 07/01/19 10:03 Chloride 103.7 mmol/L (98-107) 07/01/19 10:03 Carbon Dioxide 21 mmol/L (22-30) L 07/01/19 10:03 Anion Gap 22 mmol/L 07/01/19 10:03 BUN 12 mg/dL (7-17) 07/01/19 10:03 Creatinine 0.8 mg/dL (0.7-1.2) 07/01/19 10:03 Estimated GFR > 60 ml/min 07/01/19 10:03 BUN/Creatinine Ratio 15 % 07/01/19 10:03 Glucose 110 mg/dL (65-100) H 07/01/19 10:03 Calcium 9.7 mg/dL (8.4-10.2) 07/01/19 10:03 Magnesium 1.80 mg/dL (1.7-2.3) 07/01/19 10:27 Total Bilirubin 0.30 mg/dL (0.1-1.2) 07/01/19 10:27 Direct Bilirubin < 0.2 mg/dL (0-0.2) 07/01/19 10:27 AST 17 units/L (5-40) 07/01/19 10:27 ALT 17 units/L (7-56) 07/01/19 10:27 Alkaline Phosphatase 55 units/L (35-129) 07/01/19 10:27 Total Creatine Kinase 135 units/L (30-135) 07/01/19 10:27 CK-MB (CK-2) 1.4 ng/mL (0.0-4.0) 07/01/19 10:27 CK-MB (CK-2) Rel Index 1.0 (0-4) 07/01/19 10:27 Troponin T < 0.010 ng/mL (0.00-0.029) 07/01/19 14:43 NT-Pro-B Natriuret Pep 63.09 pg/mL (0-900) 07/01/19 10:27 Total Protein 6.8 g/dL (6.3-8.2) 07/01/19 10:27 Albumin 3.8 g/dL (3.9-5) L 07/01/19 10:27 Albumin/Globulin Ratio 1.3 % 07/01/19 10:27 Lipase 26 units/L (13-60) 07/01/19 10:27 TSH 0.706 mlU/mL (0.270-4.200) 07/01/19 13:12 Free T4 1.02 ng/dL (0.76-1.46) 07/01/19 13:12 Urine Color Yellow (Yellow) 07/01/19 12:04 Urine Turbidity Slightly-cloudy (Clear) 07/01/19 12:04 Urine pH 5.0 (5.0-7.0) 07/01/19 12:04 Ur Specific [place] 1.016 (1.003-1.030) 07/01/19 12:04 Urine Protein <15 mg/dl mg/dL (Negative) 07/01/19 12:04 Urine Glucose (UA) Neg mg/dL (Negative) 07/01/19 12:04 Urine Ketones Neg mg/dL (Negative) 07/01/19 12:04 Urine Blood Neg (Negative) 07/01/19 12:04 Urine Nitrite Neg (Negative) 07/01/19 12:04 Ur Reducing Substances Not Reportable 07/01/19 12:04 Urine Bilirubin Neg (Negative) 07/01/19 12:04 Urine Ictotest Not Reportable 07/01/19 12:04 Urine Urobilinogen < 2.0 mg/dL (<2.0) 07/01/19 12:04 Ur Leukocyte Esterase Neg (Negative) 07/01/19 12:04 Urine WBC (Auto) < 1.0 /HPF (0.0-6.0) 07/01/19 12:04 Urine RBC (Auto) 1.0 /HPF (0.0-6.0) 07/01/19 12:04 U Epithel Cells (Auto) 8.0 /HPF (0-13.0) 07/01/19 12:04 Urine Bacteria (Auto) 1+ /HPF (Negative) 07/01/19 12:04 Urine Mucus Few /HPF 07/01/19 12:04 Blood Type A POSITIVE 07/01/19 10:09 Antibody Screen Negative 07/01/19 10:09
[2019-07-01] MEDS ORDERED: ACETAMINOPHEN 325 MG TAB PO PRN ×2 (18:23→18:27)
[2019-07-01] MEDS ORDERED: ONDANSETRON 4 MG/2 ML INJ IV PRN ×2 (18:23→18:27)
[2019-07-01] MEDS ORDERED: HYDROmorphone 1 MG/1 ML INJ IV PRN (18:23)
[2019-07-01] MEDS ORDERED: IPRATROPIUM/ALBUTEROL SULFATE 3 ML AMPUL.NEB IH PRN (18:25)
[2019-07-01] MEDS ORDERED: ALBUTEROL 2.5 MG/3 ML NEBU IH PRN (18:44)
[2019-07-01] MEDS ORDERED: HYDROcodone/ACETAMINOPHEN 10-325MG TAB PO PRN (18:48)
[2019-07-01] MEDS: PANTOPRAZOLE 40 MG TAB PO SCH (19:58)
[2019-07-01] MEDS: LORazepam 1 MG TAB PO PRN (20:00)
[2019-07-01] MEDS ORDERED: IPRATROPIUM/ALBUTEROL SULFATE 3 ML AMPUL.NEB IH SCH ×2 (20:00)
[2019-07-01] MEDS: HEPARIN 5,000 UNIT/1 ML VIAL SUB-Q SCH (21:25)
[2019-07-01] MEDS: methylPREDNISolone Sod Succinate 125 MG/2 ML INJ IV SCH (21:25)
[2019-07-01] MEDS: INSULIN LISPRO 100 UNIT/ML SUB-Q SCH (21:26)
[2019-07-01] MEDS: FAMOTIDINE 20 MG TAB PO SCH (21:26)
[2019-07-01] MEDS: metFORMIN 500 MG TAB PO SCH (21:26)
[2019-07-01] MEDS: PRAVASTATIN 80 MG TAB PO SCH (21:26)
[2019-07-01] MEDS ORDERED: MOMETASONE IH SCH (22:00)
[2019-07-01] MEDS ORDERED: FAMOTIDINE 20 MG TAB PO SCH (22:00)
[2019-07-01] MEDS ORDERED: FORMOTEROL IH SCH (22:00)
[2019-07-01] MEDS ORDERED: NON-FORMULARY EACH (Simvastatin [Simvastatin] 40 MG) PO SCH (22:00)
[2019-07-01] MEDS: oxyCODONE /ACETAMINOPHEN 5-325MG TAB PO PRN (23:10)
[2019-07-01] MEDS: OXYMETAZOLINE 0.05% NASAL SPRAY NS PRN (23:11)
[2019-07-02] MEDS: methylPREDNISolone Sod Succinate 125 MG/2 ML INJ IV SCH ×3 (05:21→17:30)
[2019-07-02] MEDS: oxyCODONE /ACETAMINOPHEN 5-325MG TAB PO PRN (05:28)
[2019-07-02 06:23] LABS: Basophils % (Auto) 0.2 % (0.0-1.8); Hematocrit 36.6 % (30.3-42.9); Hemoglobin 12.2 gm/dl (10.1-14.3); Lymphocytes # (Auto) 0.9 K/mm3 (1.2-5.4); Mean Corpuscular HGB Conc 33 % (30-34); Mean Corpuscular Volume 89 fl (79-97); Monocytes # (Auto) 0.1 K/mm3 (0.0-0.8); Monocytes % (Auto) 1.2 % (0.0-7.3); Platelet Count 293 K/mm3 (140-440); Red Blood Count 4.12 M/mm3 (3.65-5.03); Red Cell Distribution Width 14.4 % (13.2-15.2)
--- NOTE | 2019-07-02 06:42 | Event Note ---
Date: 07/01/19 See H/p in reports Chest pain -r/o SC
[2019-07-02 06:49] LABS: Alanine Aminotransferase 17 units/L (7-56); Albumin 3.9 g/dL (3.9-5); BUN/Creatinine Ratio 14; Blood Urea Nitrogen 11 mg/dL (7-17); Calcium 9.2 mg/dL (8.4-10.2); Hemolysis Index 1
--- NOTE | 2019-07-02 08:11 | History and Physical Report ---
CHIEF COMPLAINT: Left-sided chest pain since morning. HISTORY OF PRESENT ILLNESS: A 69-year-old female with history of recent COPD disease exacerbation and respiratory failure, ____, comes in for left-sided chest pain since morning. The patient was discharged earlier this month. The patient ____ pneumonia, coming back. Recent admission was reviewed. The patient had acute respiratory failure, COPD exacerbation and right lower lobe pneumonia. The patient was on home O2. Chest pain is dull in character and retrosternal. No diaphoresis. No radiation. No palpitations or shortness of breath. No orthopnea. The patient has been following with [facility]. She was sent by ____ for hemoglobin of 4.3 and 13.8, but here the hemoglobin and hematocrit were normal. The patient is being admitted for chest pain. PAST MEDICAL HISTORY: Significant for hypertension, COPD, generalized anxiety disorder. PAST SURGICAL HISTORY: Significant for hysterectomy. SOCIAL HISTORY: Light tobacco smoker. FAMILY HISTORY: Hypertension. CURRENT MEDICATIONS: On the chart. REVIEW OF SYSTEMS: Significant for retrosternal and left-sided chest pain, increasing shortness of breath. No cough. Otherwise, review of system is normal. PHYSICAL EXAMINATION: GENERAL: Elderly female, cooperative during examination. VITAL SIGNS: Blood pressure 130/63, temperature is 98.4, pulse is 92, sats 100%. HEENT: Unremarkable. Pupils equal and reactive. NECK: Supple, no lymphadenopathy, no thyromegaly. LUNGS: Clear to auscultation and percussion. Good air entry. CARDIOVASCULAR: S1, S2 heard. No gallop, no murmur, no rub. Apical impulse in left fifth intercostal space and midclavicular line. ABDOMEN: Soft and benign. No hepatosplenomegaly. No guarding, no rigidity. Hernial orifices are normal. EXTREMITIES: Good pedal pulses. No pedal edema. CENTRAL NERVOUS SYSTEM: Alert and oriented x 4, nonfocal exam. SKIN: Normal. LABORATORY DATA: Chest x-ray showed no acute pulmonary findings. EKG reviewed. Sinus rhythm. No acute ST-T wave changes. ASSESSMENT AND PLAN: 1. Chest pain, rule out myocardial infarction, chest pain protocol. Lexiscan in the morning. 2. Chronic obstructive pulmonary disease exacerbation. The patient initiated on bronchodilators, antibiotics and steroids. 3. Acute respiratory failure. The patient on oxygen at home. The patient was hypoxic initially. 4. Hypertension. Continue antihypertensives. 5. Type 2 diabetes. Continue metformin. 6. Deep venous thrombosis prophylaxis, heparin 5000 q. 12. JOB# [id number] BOBBY/ROXANNE ANDRE
[2019-07-02] MEDS: IPRATROPIUM/ALBUTEROL SULFATE 3 ML AMPUL.NEB IH SCH ×3 (08:29→23:05)
[2019-07-02] MEDS ORDERED: REGADENOSON 0.4 MG/5 ML INJ IV ONE ×2 (08:51→08:56)
[2019-07-02] MEDS: FAMOTIDINE 20 MG TAB PO SCH (10:57)
[2019-07-02] MEDS: PANTOPRAZOLE 40 MG TAB PO SCH ×2 (10:57→21:35)
[2019-07-02] MEDS: OXYMETAZOLINE 0.05% NASAL SPRAY NS PRN ×2 (10:58→21:37)
[2019-07-02] MEDS: amLODIPine 10 MG TAB PO SCH (10:58)
[2019-07-02] MEDS: HEPARIN 5,000 UNIT/1 ML VIAL SUB-Q SCH ×2 (11:05→21:36)
[2019-07-02] MEDS ORDERED: FLU VACC QUAD 2019-20 (3 YR UP)/PF 60 MCG/0.5 ML SYRINGE IM ONE (12:00)
[2019-07-02] MEDS ORDERED: PNEUMOCOCCAL 23 Valent 0.5 ML VIAL IM ONE (12:00)
[2019-07-02] MEDS: INSULIN LISPRO 100 UNIT/ML SUB-Q SCH ×4 (12:10→21:36)
--- NOTE | 2019-07-02 13:03 | Consultation ---
History of Present Illness Consult date: 07/02/19 Requesting physician: ELIZABETH STEINBERG Reason for consult: COPD History of present illness: PULMONARY/CCM CONSULT NOTE (Full dictation # [id number]) Please see dictated notes for full details Medications and Allergies Allergies Allergy/AdvReac Type Severity Reaction Status Date / Time Penicillins Allergy Unknown Verified 08/26/15 09:15 Home Medications Medication Instructions Recorded Confirmed Last Taken Type lisinopriL [Zestril TAB] 40 mg PO DAILY@1800 02/23/13 07/01/19 06/30/19 18:00 History Amlodipine Besylate [Norvasc] 10 mg PO QAM 04/01/17 07/01/19 07/01/19 07:00 History Albuterol INH(or & Nicu Only) 2 puff IH Q6H PRN #1 inha 07/04/17 07/01/19 06/30/19 21:00 Rx [ProAir HFA Inhaler] Ipratropium/Albuterol Sulfate 1 ampul IH Q6HRT #30 ampul.neb 07/04/17 07/01/19 06/30/19 21:00 Rx [DUONEB *Not for PRN Use*] Mometasone/Formoterol [Dulera 200 2 puff IH BID #1 hfa.aer.ad 07/04/17 07/01/19 07/01/19 07:00 Rx Mcg/5 Mcg Inhaler] Umeclidinium Brm/Vilanterol Tr 1 each IH QDAY 10/07/17 07/01/19 07/01/19 07:00 History [Anoro Ellipta 62.5-25 Mcg INH] Ativan 1 mg .ROUTE TID PRN 06/05/18 07/01/19 06/26/19 10:00 History Pantoprazole [Protonix TAB] 40 mg PO QDAY #30 tablet 06/09/18 07/01/19 Unknown Rx HYDROcodone/APAP 10-325 1 tab PO Q6H PRN 07/01/19 07/01/19 Unknown History Simvastatin 40 mg PO HS 07/01/19 07/01/19 06/30/19 21:00 History metFORMIN [Glucophage] 500 mg PO HS 07/01/19 07/01/19 06/30/19 21:00 History Active Meds: Active Medications Acetaminophen (Tylenol) 650 mg PO Q4H PRN PRN Reason: Pain MILD(1-3)/Fever >100.5/LEO Acetaminophen/Hydrocodone Bitart ([place] 10/325) 1 each PO Q6H PRN PRN Reason: Pain, Moderate (4-6) Last Admin: 07/01/19 19:58 Dose: 1 each Documented by: Albuterol (Proventil) 2.5 mg IH Q4HRT PRN PRN Reason: Shortness Of Breath Albuterol/Ipratropium (Duoneb *Not For Prn Use*) 1 ampul IH QIDRT [facility] Last Admin: 07/02/19 08:29 Dose: 1 ampul Documented by: Amlodipine Besylate (Amlodipine) 10 mg PO QAM [facility] Last Admin: 07/02/19 10:58 Dose: 10 mg Documented by: Famotidine (Pepcid) 20 mg PO BID [facility] Last Admin: 07/02/19 10:57 Dose: 20 mg Documented by: Heparin Sodium (Porcine) (Heparin) 5,000 unit SUB-Q Q12HR [facility] Last Admin: 07/02/19 11:05 Dose: 5,000 unit Documented by: Hydromorphone HCl (Dilaudid) 0.5 mg IV Q3H PRN PRN Reason: Pain , Severe (7-10) Levofloxacin/Dextrose (Levaquin 750mg/150ml) 750 mg in 150 mls @ 100 mls/hr IV Q24HR [facility]; Protocol Last Admin: 07/02/19 10:56 Dose: 100 mls/hr Documented by: Insulin Human Lispro (Humalog) 0 unit SUB-Q ACHS [facility]; Protocol Last Admin: 07/02/19 12:10 Dose: 2 unit Documented by: Lisinopril (Zestril) 40 mg PO DAILY@1800 [facility] Lorazepam (Ativan) 1 mg PO TID PRN PRN Reason: Anxiety Last Admin: 07/01/19 20:00 Dose: 1 mg Documented by: Metformin HCl (Glucophage) 500 mg PO HS [facility] Last Admin: 07/01/19 21:26 Dose: 500 mg Documented by: Methylprednisolone Sodium Succinate (Solu-Medrol) 60 mg IV Q8HR [facility] Last Admin: 07/02/19 05:21 Dose: 60 mg Documented by: Miscellaneous Medication (Mometasone/Formoterol [Dulera 200 Mcg/5 Mcg Inhaler]) 2 puff IH BID [facility] Miscellaneous Medication (Umeclidinium Brm/Vilanterol Tr [Anoro Ellipta 62.5-25 Mcg Inh]) 1 each IH QDAY [facility] Ondansetron HCl (Zofran) 4 mg IV Q8H PRN PRN Reason: Nausea And Vomiting Oxycodone/Acetaminophen (Percocet 5/325) 1 tab PO Q6H PRN PRN Reason: Pain, Moderate (4-6) Last Admin: 07/02/19 05:28 Dose: 1 tab Documented by: Oxymetazoline HCl (Vicks Sinex) 2 spray NS Q12H PRN PRN Reason: Nasal Congestion Last Admin: 07/02/19 10:58 Dose: 2 spray Documented by: Pantoprazole Sodium (Protonix) 40 mg PO QDAY [facility] Last Admin: 07/02/19 10:57 Dose: 40 mg Documented by: Pravastatin Sodium (Pravachol) 80 mg PO QHS [facility] Last Admin: 07/01/19 21:26 Dose: 80 mg Documented by: Sodium Chloride (Sodium Chloride Flush Syringe 10 Ml) 10 ml IV BID [facility] Last Admin: 07/02/19 12:14 Dose: 10 ml Documented by: Sodium Chloride (Sodium Chloride Flush Syringe 10 Ml) 10 ml IV PRN PRN PRN Reason: LINE FLUSH Physical Examination Vital signs: Vital Signs Pulse Resp 82 18 07/01/19 10:05 07/01/19 10:05 Results - Laboratory Findings CBC and BMP: 07/02/19 05:32 07/02/19 05:32 PT/INR, D-dimer PT 13.7 Sec. (12.2-14.9) 07/01/19 10:27 INR 1.04 (0.87-1.13) 07/01/19 10:27 Abnormal lab findings: Abnormal Labs 07/01/19 07/01/19 07/01/19 10:03 10:03 10:06 Lymph % (Auto) 43.9 H Baso % (Auto) 2.0 H Lymph # Baso # 0.2 H Seg Neutrophils % Carbon Dioxide 21 L Glucose 110 H POC Glucose Hemoglobin A1c 7.7 H Albumin 07/01/19 07/01/19 07/02/19 10:27 21:23 05:32 Lymph % (Auto) Baso % (Auto) Lymph # 0.9 L Baso # Seg Neutrophils % 84.6 H Carbon Dioxide Glucose POC Glucose 135 H Hemoglobin A1c Albumin 3.8 L 07/02/19 07/02/19 07/02/19 05:32 07:42 11:29 Lymph % (Auto) Baso % (Auto) Lymph # Baso # Seg Neutrophils % Carbon Dioxide 21 L Glucose 206 H POC Glucose 165 H 198 H Hemoglobin A1c Albumin
[2019-07-02] MEDS: LORazepam 1 MG TAB PO PRN ×2 (13:44→21:36)
--- NOTE | 2019-07-02 14:12 | Consultation ---
History of Present Illness Consult date: 07/02/19 Consult reason: chest pain History of present illness: This is a 69-year old woman who was referred to the emergency department with findings of severe anemia on labs done at her pcp office. On initial workup, there was no evidence of severe anemia. Laboratory studies shows an H&H within normal limits. In addition, while in the emergency department, the patient complained of shortness of breath, coughs and chest pain. Chest x-ray is negative and her ECG is benign. Patient was admitted by the hospitalist and was planned for a stress thallium test which was later cancel. Patient has a history of COPD, diabetes and chronic hypertension. There is no history of coronary artery disease. Patient had an outpatient stress thallium test 3 weeks ago that reports a normal myocardial perfusion study. An echocardiogram showed a normal left ventricular systolic function, ejection fraction 55-65%. A cardiac consultation has been requested for chest pain evaluation. Medications and Allergies Allergies Allergy/AdvReac Type Severity Reaction Status Date / Time Penicillins Allergy Unknown Verified 08/26/15 09:15 Home Medications Medication Instructions Recorded Confirmed Last Taken Type lisinopriL [Zestril TAB] 40 mg PO DAILY@1800 02/23/13 07/01/19 06/30/19 18:00 History Amlodipine Besylate [Norvasc] 10 mg PO QAM 04/01/17 07/01/19 07/01/19 07:00 History Albuterol INH(or & Nicu Only) 2 puff IH Q6H PRN #1 inha 07/04/17 07/01/19 06/30/19 21:00 Rx [ProAir HFA Inhaler] Ipratropium/Albuterol Sulfate 1 ampul IH Q6HRT #30 ampul.neb 07/04/17 07/01/19 06/30/19 21:00 Rx [DUONEB *Not for PRN Use*] Mometasone/Formoterol [Dulera 200 2 puff IH BID #1 hfa.aer.ad 07/04/17 07/01/19 07/01/19 07:00 Rx Mcg/5 Mcg Inhaler] Umeclidinium Brm/Vilanterol Tr 1 each IH QDAY 10/07/17 07/01/19 07/01/19 07:00 History [Anoro Ellipta 62.5-25 Mcg INH] Ativan 1 mg .ROUTE TID PRN 06/05/18 07/01/19 06/26/19 10:00 History Pantoprazole [Protonix TAB] 40 mg PO QDAY #30 tablet 06/09/18 07/01/19 Unknown Rx HYDROcodone/APAP 10-325 1 tab PO Q6H PRN 07/01/19 07/01/19 Unknown History Simvastatin 40 mg PO HS 07/01/19 07/01/19 06/30/19 21:00 History metFORMIN [Glucophage] 500 mg PO HS 07/01/19 07/01/19 06/30/19 21:00 History Active Meds: Active Medications Acetaminophen (Tylenol) 650 mg PO Q4H PRN PRN Reason: Pain MILD(1-3)/Fever >100.5/LEO Acetaminophen/Hydrocodone Bitart ([place] 10/325) 1 each PO Q6H PRN PRN Reason: Pain, Moderate (4-6) Last Admin: 07/01/19 19:58 Dose: 1 each Documented by: Albuterol (Proventil) 2.5 mg IH Q4HRT PRN PRN Reason: Shortness Of Breath Albuterol/Ipratropium (Duoneb *Not For Prn Use*) 1 ampul IH QIDRT [facility] Last Admin: 07/02/19 08:29 Dose: 1 ampul Documented by: Amlodipine Besylate (Amlodipine) 10 mg PO QAM [facility] Last Admin: 07/02/19 10:58 Dose: 10 mg Documented by: Famotidine (Pepcid) 20 mg PO BID [facility] Last Admin: 07/02/19 10:57 Dose: 20 mg Documented by: Heparin Sodium (Porcine) (Heparin) 5,000 unit SUB-Q Q12HR [facility] Last Admin: 07/02/19 11:05 Dose: 5,000 unit Documented by: Hydromorphone HCl (Dilaudid) 0.5 mg IV Q3H PRN PRN Reason: Pain , Severe (7-10) Levofloxacin/Dextrose (Levaquin 750mg/150ml) 750 mg in 150 mls @ 100 mls/hr IV Q24HR [facility]; Protocol Last Admin: 07/02/19 10:56 Dose: 100 mls/hr Documented by: Insulin Human Lispro (Humalog) 0 unit SUB-Q ACHS [facility]; Protocol Last Admin: 07/02/19 12:10 Dose: 2 unit Documented by: Lisinopril (Zestril) 40 mg PO DAILY@1800 [facility] Lorazepam (Ativan) 1 mg PO TID PRN PRN Reason: Anxiety Last Admin: 07/02/19 13:44 Dose: 1 mg Documented by: Metformin HCl (Glucophage) 500 mg PO HS [facility] Last Admin: 07/01/19 21:26 Dose: 500 mg Documented by: Methylprednisolone Sodium Succinate (Solu-Medrol) 60 mg IV Q8HR [facility] Last Admin: 07/02/19 13:48 Dose: 60 mg Documented by: Miscellaneous Medication (Mometasone/Formoterol [Dulera 200 Mcg/5 Mcg Inhaler]) 2 puff IH BID [facility] Miscellaneous Medication (Umeclidinium Brm/Vilanterol Tr [Anoro Ellipta 62.5-25 Mcg Inh]) 1 each IH QDAY [facility] Ondansetron HCl (Zofran) 4 mg IV Q8H PRN PRN Reason: Nausea And Vomiting Oxycodone/Acetaminophen (Percocet 5/325) 1 tab PO Q6H PRN PRN Reason: Pain, Moderate (4-6) Last Admin: 07/02/19 05:28 Dose: 1 tab Documented by: Oxymetazoline HCl (Vicks Sinex) 2 spray NS Q12H PRN PRN Reason: Nasal Congestion Last Admin: 07/02/19 10:58 Dose: 2 spray Documented by: Pantoprazole Sodium (Protonix) 40 mg PO QDAY [facility] Last Admin: 07/02/19 10:57 Dose: 40 mg Documented by: Pravastatin Sodium (Pravachol) 80 mg PO QHS [facility] Last Admin: 07/01/19 21:26 Dose: 80 mg Documented by: Sodium Chloride (Sodium Chloride Flush Syringe 10 Ml) 10 ml IV BID [facility] Last Admin: 07/02/19 12:14 Dose: 10 ml Documented by: Sodium Chloride (Sodium Chloride Flush Syringe 10 Ml) 10 ml IV PRN PRN PRN Reason: LINE FLUSH Physical Examination Vital Signs Pulse Resp 82 18 07/01/19 10:05 07/01/19 10:05 General appearance: no acute distress HEENT: Positive: PERRL Neck: Positive: trachea midline Cardiac: Positive: Reg Rate and Rhythm Lungs: Positive: Decreased Breath Sounds Results 07/02/19 05:32 07/02/19 05:32 Cardiac Enzymes 07/02/19 Range/Units 05:32 AST 14 (5-40) units/L CBC 07/02/19 Range/Units 05:32 WBC 6.4 (4.5-11.0) K/mm3 RBC 4.12 (3.65-5.03) M/mm3 Hgb 12.2 (10.1-14.3) gm/dl Hct 36.6 (30.3-42.9) % Plt Count 293 (140-440) K/mm3 Lymph # 0.9 L (1.2-5.4) K/mm3 [place] # 0.1 (0.0-0.8) K/mm3 Eos # 0.0 (0.0-0.4) K/mm3 Baso # 0.0 (0.0-0.1) K/mm3 Comprehensive Metabolic Panel 07/02/19 Range/Units 05:32 Sodium 139 (137-145) mmol/L Potassium 4.3 (3.6-5.0) mmol/L Chloride 102.0 (98-107) mmol/L Carbon Dioxide 21 L (22-30) mmol/L BUN 11 (7-17) mg/dL Creatinine 0.8 (0.7-1.2) mg/dL Glucose 206 H (65-100) mg/dL Calcium 9.2 (8.4-10.2) mg/dL AST 14 (5-40) units/L ALT 17 (7-56) units/L Alkaline Phosphatase 56 (35-129) units/L Total Protein 7.4 (6.3-8.2) g/dL Albumin 3.9 (3.9-5) g/dL Assessment and Plan - Patient Problems (1) Chest pain Current Visit: Yes Status: Acute Qualifiers: Qualified Code(s): R07.9 - Chest pain, unspecified Plan to address problem: Atypical chest pain normal perfusion MPI 05/2019 normal LVEF 65% by echo 05/2019 No further cardiac workup indicated. Please consider other etiologies for non-cardiac chest pain. We will sign off.
--- NOTE | 2019-07-02 16:34 | Progress Note ---
Assessment and Plan Assessment and plan: Chest pain. Admitted to [facility] following had negative stress test in Dec Acute on chronic resp failure supplemental oxygen Pulm eval COPD exacerbation Cont solu-medrol Duoneb Diabetes mellitus type 2 Accuccheck qa and Hypertension Monitor BP Full code status History Interval history: chest pain Hospitalist Physical - Physical exam Narrative exam: GEN: Not in acute distress, lying in bed,obese HEENT: Normocephalic, atraumatic, Neck: supple, No JVD Lungs: Bilateral rhonchi heart;S1 and S2 reg, no murmurs Abd:soft, non tender, non distended, normal bowel sounds Ext: No edema, no clubbing, no cyanosis Neuro: AAO X 3, no focal neurological signs - Constitutional Vitals: Temp Pulse Resp BP Pulse Ox 97.8 F 96 H 18 153/68 94 07/02/19 12:53 07/02/19 12:53 07/02/19 12:53 07/02/19 12:53 07/02/19 12:53 General appearance: Present: no acute distress FREDDY score - Freddy Score Age > 65: (0) No Aspirin use within the Past 7 Days: (1) Yes 3 or more CAD Risk Factors: (1) Yes 2 or more Angina events in past 24 hrs: (0) No Known CAD with more than 50% Stenosis: (0) No Elevated Cardiac Markers: (0) No ST Deviation Greater than 0.5mm: (0) No FREDDY Score: 2 Results - Labs CBC & Chem 7: 07/02/19 05:32 07/02/19 05:32 Labs: Laboratory Last Values WBC 6.4 K/mm3 (4.5-11.0) 07/02/19 05:32 RBC 4.12 M/mm3 (3.65-5.03) 07/02/19 05:32 Hgb 12.2 gm/dl (10.1-14.3) 07/02/19 05:32 Hct 36.6 % (30.3-42.9) 07/02/19 05:32 MCV 89 fl (79-97) 07/02/19 05:32 MCH 30 pg (28-32) 07/02/19 05:32 MCHC 33 % (30-34) 07/02/19 05:32 RDW 14.4 % (13.2-15.2) 07/02/19 05:32 Plt Count 293 K/mm3 (140-440) 07/02/19 05:32 Lymph % (Auto) 14.0 % (13.4-35.0) 07/02/19 05:32 [place] % (Auto) 1.2 % (0.0-7.3) 07/02/19 05:32 Eos % (Auto) 0.0 % (0.0-4.3) 07/02/19 05:32 Baso % (Auto) 0.2 % (0.0-1.8) 07/02/19 05:32 Lymph # 0.9 K/mm3 (1.2-5.4) L 07/02/19 05:32 [place] # 0.1 K/mm3 (0.0-0.8) 07/02/19 05:32 Eos # 0.0 K/mm3 (0.0-0.4) 07/02/19 05:32 Baso # 0.0 K/mm3 (0.0-0.1) 07/02/19 05:32 Seg Neutrophils % 84.6 % (40.0-70.0) H 07/02/19 05:32 Seg Neutrophils # 5.4 K/mm3 (1.8-7.7) 07/02/19 05:32 PT 13.7 Sec. (12.2-14.9) 07/01/19 10:27 INR 1.04 (0.87-1.13) 07/01/19 10:27 APTT 33.9 Sec. (24.2-36.6) 07/01/19 10:27 D-Dimer 302.69 ng/mlDDU (0-234) H 07/02/19 12:58 Sodium 139 mmol/L (137-145) 07/02/19 05:32 Potassium 4.3 mmol/L (3.6-5.0) 07/02/19 05:32 Chloride 102.0 mmol/L (98-107) 07/02/19 05:32 Carbon Dioxide 21 mmol/L (22-30) L 07/02/19 05:32 Anion Gap 20 mmol/L 07/02/19 05:32 BUN 11 mg/dL (7-17) 07/02/19 05:32 Creatinine 0.8 mg/dL (0.7-1.2) 07/02/19 05:32 Estimated GFR > 60 ml/min 07/02/19 05:32 BUN/Creatinine Ratio 14 % 07/02/19 05:32 Glucose 206 mg/dL (65-100) H 07/02/19 05:32 POC Glucose 198 (70-105) H 07/02/19 11:29 Hemoglobin A1c 7.7 % (4-6) H 07/01/19 10:06 Calcium 9.2 mg/dL (8.4-10.2) 07/02/19 05:32 Magnesium 1.80 mg/dL (1.7-2.3) 07/01/19 10:27 Total Bilirubin 0.20 mg/dL (0.1-1.2) 07/02/19 05:32 Direct Bilirubin < 0.2 mg/dL (0-0.2) 07/01/19 10:27 AST 14 units/L (5-40) 07/02/19 05:32 ALT 17 units/L (7-56) 07/02/19 05:32 Alkaline Phosphatase 56 units/L (35-129) 07/02/19 05:32 Total Creatine Kinase 135 units/L (30-135) 07/01/19 10:27 CK-MB (CK-2) 1.4 ng/mL (0.0-4.0) 07/01/19 10:27 CK-MB (CK-2) Rel Index 1.0 (0-4) 07/01/19 10:27 Troponin T < 0.010 ng/mL (0.00-0.029) 07/01/19 14:43 NT-Pro-B Natriuret Pep 63.09 pg/mL (0-900) 07/01/19 10:27 Total Protein 7.4 g/dL (6.3-8.2) 07/02/19 05:32 Albumin 3.9 g/dL (3.9-5) 07/02/19 05:32 Albumin/Globulin Ratio 1.1 % 07/02/19 05:32 Lipase 26 units/L (13-60) 07/01/19 10:27 TSH 0.706 mlU/mL (0.270-4.200) 07/01/19 13:12 Free T4 1.02 ng/dL (0.76-1.46) 07/01/19 13:12 Urine Color Yellow (Yellow) 07/01/19 12:04 Urine Turbidity Slightly-cloudy (Clear) 07/01/19 12:04 Urine pH 5.0 (5.0-7.0) 07/01/19 12:04 Ur Specific [place] 1.016 (1.003-1.030) 07/01/19 12:04 Urine Protein <15 mg/dl mg/dL (Negative) 07/01/19 12:04 Urine Glucose (UA) Neg mg/dL (Negative) 07/01/19 12:04 Urine Ketones Neg mg/dL (Negative) 07/01/19 12:04 Urine Blood Neg (Negative) 07/01/19 12:04 Urine Nitrite Neg (Negative) 07/01/19 12:04 Ur Reducing Substances Not Reportable 07/01/19 12:04 Urine Bilirubin Neg (Negative) 07/01/19 12:04 Urine Ictotest Not Reportable 07/01/19 12:04 Urine Urobilinogen < 2.0 mg/dL (<2.0) 07/01/19 12:04 Ur Leukocyte Esterase Neg (Negative) 07/01/19 12:04 Urine WBC (Auto) < 1.0 /HPF (0.0-6.0) 07/01/19 12:04 Urine RBC (Auto) 1.0 /HPF (0.0-6.0) 07/01/19 12:04 U Epithel Cells (Auto) 8.0 /HPF (0-13.0) 07/01/19 12:04 Urine Bacteria (Auto) 1+ /HPF (Negative) 07/01/19 12:04 Urine Mucus Few /HPF 07/01/19 12:04 Blood Type A POSITIVE 07/01/19 10:09 Antibody Screen Negative 07/01/19 10:09 Active Medications - Current Medications Current Medications: Generic Name Dose Route Start Last Admin Trade Name Freq PRN Reason Stop Dose Admin Acetaminophen 650 mg 07/01/19 18:23 Tylenol PO Q4H PRN Pain MILD(1-3)/Fever >100.5/LEO Acetaminophen/Hydrocodone Bitart 1 each 07/01/19 18:48 07/01/19 19:58 [place] 10/325 PO 1 each Q6H PRN Administration Pain, Moderate (4-6) Albuterol 2.5 mg 07/01/19 18:44 Proventil IH Q4HRT PRN Shortness Of Breath Albuterol/Ipratropium 1 ampul 07/02/19 20:00 Duoneb *Not For Prn Use* IH TIDRT [facility] Amlodipine Besylate 10 mg 07/02/19 10:00 07/02/19 10:58 Amlodipine PO 10 mg QAM [facility] Administration Arformoterol Tartrate 15 mcg 07/02/19 20:00 Brovana Nebu IH Q12HRT [facility] Budesonide 0.5 mg 07/02/19 20:00 Pulmicort IH Q12HRT [facility] Famotidine 20 mg 07/02/19 22:00 Pepcid PO QHS [facility] Heparin Sodium (Porcine) 5,000 unit 07/01/19 22:00 07/02/19 11:05 Heparin SUB-Q 5,000 unit Q12HR [facility] Administration Hydromorphone HCl 0.5 mg 07/01/19 18:23 Dilaudid IV Q3H PRN Pain , Severe (7-10) Levofloxacin/Dextrose 750 mg in 150 mls @ 100 mls/hr 07/01/19 19:00 07/02/19 10:56 Levaquin 750mg/150ml IV 100 mls/hr Q24HR [facility] Administration Protocol Insulin Human Lispro 0 unit 07/01/19 22:00 07/02/19 12:10 Humalog SUB-Q 2 unit ACHS [facility] Administration Protocol Lisinopril 40 mg 07/02/19 18:00 Zestril PO DAILY@1800 [facility] Lorazepam 1 mg 07/01/19 20:00 07/02/19 13:44 Ativan PO 1 mg TID PRN Administration Anxiety Metformin HCl 500 mg 07/01/19 22:00 07/01/19 21:26 Glucophage PO 500 mg HS [facility] Administration Methylprednisolone Sodium Succinate 40 mg 07/02/19 16:00 Solu-Medrol IV Q12H [facility] Ondansetron HCl 4 mg 07/01/19 18:23 Zofran IV Q8H PRN Nausea And Vomiting Oxycodone/Acetaminophen 1 tab 07/01/19 18:23 07/02/19 05:28 Percocet 5/325 PO 1 tab Q6H PRN Administration Pain, Moderate (4-6) Oxymetazoline HCl 2 spray 07/01/19 22:27 07/02/19 10:58 Vicks Sinex NS 2 spray Q12H PRN Administration Nasal Congestion Pantoprazole Sodium 40 mg 07/02/19 22:00 Protonix PO BID [facility] Pravastatin Sodium 80 mg 07/01/19 22:00 07/01/19 21:26 Pravachol PO 80 mg QHS [facility] Administration Sodium Chloride 10 ml 07/01/19 22:00 07/02/19 12:14 Sodium Chloride Flush Syringe 10 Ml IV 10 ml BID [facility] Administration Sodium Chloride 10 ml 07/01/19 18:23 Sodium Chloride Flush Syringe 10 Ml IV PRN PRN LINE FLUSH
--- NOTE | 2019-07-02 17:46 | Vascular Lab Report ---
DUPLEX DOPPLER LOWER EXTREMITY VEINS, BILATERAL INDICATION: Bilateral leg swelling. TECHNIQUE: Duplex doppler imaging was performed through the veins of both lower extremities using venous jose stephen and other maneuvers. COMPARISON: None available. FINDINGS: Right Common femoral vein: Negative. Right Superficial femoral vein: Negative. Right Popliteal vein: Negative. Right Calf veins: Negative. Left Common femoral vein: Negative. Left Superficial femoral vein: Negative. Left Popliteal vein: Negative. Left Calf veins: Negative. Additional findings: There is no evidence of a popliteal cyst or other abnormality. IMPRESSION: No sonographic evidence for DVT in either lower extremity. Signer Name: Jovan Mckeon MD Signed: 07/02/2019 5:41 PM Workstation Name: [id number]
[2019-07-02] MEDS ORDERED: traMADol 50 MG TAB PO PRN (17:52)
[2019-07-02] MEDS ORDERED: ALUM-MAG HYDROXIDE-SIMETHICONE 200-200-20MG/5ML ORAL LIQD 30 ML PO PRN (17:53)
[2019-07-02] MEDS ORDERED: LISINOPRIL 40 MG TAB PO SCH (18:00)
[2019-07-02] MEDS: metFORMIN 500 MG TAB PO SCH (21:35)
--- NOTE | 2019-07-02 21:35 | Cat Scan Report ---
CTA CHEST WITH IV CONTRAST INDICATION: Chest pain, elevated d-dimer. TECHNIQUE: Axial CT images were obtained through the chest after injection of IV contrast. 3 plane MIP reconstru ctions were produced. All CT scans at this location are performed using CT dose reduction for ALARA b y means of automated exposure control. The exam is limited by secondary to streak sternum respiratory motion artifact. COMPARISON: None available. FINDINGS: PULMONARY ARTERIES: Suboptimal evaluation of the pulmonary artery secondary to respiratory motion art ifact. No central pulmonary thromboembolus is appreciated within the right or left main pulmonary art eries.. AORTA AND ARTERIES: No acute abnormality. MEDIASTINUM: No mass, lymphadenopathy or other significant abnormality. The heart is normal in size w ithout a pericardial effusion. The trachea and main bronchi are patent and normal in caliber. LUNGS: No suspicious consolidation, nodule or mass. No pneumothorax or pleural effusion. Emphysema. ADDITIONAL FINDINGS: None. UPPER ABDOMEN: No acute findings. BONES: No significant osseous abnormality. IMPRESSION: 1. No definite evidence of pulmonary thromboembolus within the limits of the exam. Please see above c omments. 2. No acute airspace disease. Emphysema. Signer Name: Albino Velazquez MD Signed: 07/02/2019 9:31 PM Workstation Name: [email or web address]
[2019-07-02] MEDS: PRAVASTATIN 80 MG TAB PO SCH (21:37)
[2019-07-02] MEDS ORDERED: FAMOTIDINE 20 MG TAB PO SCH (22:00)
--- NOTE | 2019-07-02 22:35 | Consultation ---
CONSULTING PHYSICIAN: Dr. Goodson REASON FOR CONSULTATION: Acute COPD exacerbation. CHIEF COMPLAINT AND HISTORY OF PRESENT ILLNESS: The patient is a 69-year-old -[place] female with past medical history significant for home oxygen dependent COPD, but who also seems to suggest she has recently been diagnosed with obstructive sleep apnea, but was unable to tolerate the patient mask interface. She came into the Emergency Room complaining of generalized weakness, shortness of breath, chest pain, felt like something was sitting on her chest, in particular, she has been dealing with gastroesophageal reflux disease and has complained a lot of persistent pain. She states she recently saw an outpatient GI doctor who put her on what appears to be double dose pantoprazole therapy. She has not noticed much of a difference with it. She admits to gaining a lot of weight in the last couple of years or so. She thinks she has been tested for sleep apnea in the past, but it was negative. She admits to a 20+ pack year tobacco smoking history, but tells me that was in the past. She does not smoke anymore. She is unable to tell me when she has quit smoking. She denied nausea, vomiting, or overt aspiration. She states she is compliant with her medications at home, which include bronchodilators. She denies any sick contacts. She thinks she is up-to-date with her flu and pneumonia vaccination. She denies any history of leg pain or swelling either unilaterally or bilaterally or any remote history of venous thromboembolic phenomenon. When I stopped by to see her, she was resting in bed. She was not on any supplemental oxygen. She was actually talking pretty fluently, but complained mostly of dyspnea on exertion. This really is as much of the history of presentation as I have. PAST MEDICAL HISTORY: Significant for hypertension, congestive heart failure, diabetes, gastroesophageal reflux disease, arthritis, COPD, hyperlipidemia, anxiety. She is obese and suggests a history of sleep apnea. PAST SURGICAL HISTORY: She has had a hysterectomy in the past. MEDICATIONS: She was on at the time I stopped by to see were reviewed, pertinent medications include the following: Tylenol 650 mg p.o. q. 4 hours p.r.n. mild pain or fever, Dudley 10/325 one tablet p.o. q. 6 hours p.r.n. moderate pain, albuterol 2.5 mg nebulized q. 4 hours p.r.n. shortness of breath, DuoNeb nebulizer treatments scheduled q.i.d., amlodipine 10 mg p.o. q.a.m., Pepcid 20 mg p.o. b.i.d., heparin 5000 units subcutaneous q. 12 hours, Dilaudid 0.5 mg IV q. 3 hours p.r.n. severe pain, insulin via sliding scale, Levaquin 750 mg IV daily, lisinopril 40 mg p.o. daily, Ativan 1 mg p.o. t.i.d. p.r.n. anxiety, Glucophage 500 mg p.o. at bedtime, Solu-Medrol 60 mg IV q. 8 hours. A couple of non-formulary medications: Zofran 4 mg IV q. 8 hours p.r.n. nausea and vomiting, Protonix 40 mg p.o. daily, Pravachol 80 mg p.o. at bedtime. ALLERGIES: PENICILLINS, nature of this allergy is unknown. DIET: Obese lady. She states she has gained a 20+ pounds over the past couple of years. FAMILY AND SOCIAL HISTORY: Lives in the community. She has a 20+ pack year now, remote tobacco smoking history according to her. Denies alcohol or illicit drug use or abuse. FAMILY HISTORY: Otherwise, noncontributory. REVIEW OF SYSTEMS: No loss of consciousness. No new onset seizures. No new onset focal weakness. She denies any eye pain or discharge or change in her vision. She denies any ear pain or throat pain. She denies any gross hematochezia or melena. Denies gross hematuria or dysuria. No hematemesis. No hemoptysis. She has a dry cough that has developed in the past 24-48 hours. She denies polydipsia or polyuria. Denies heat or cold intolerance. Complete 13-system review of systems obtained. Pertinent positives and/or negatives as in body of history above, otherwise they are noncontributory. PHYSICAL EXAMINATION: VITAL SIGNS: At presentation in the Emergency Room, she was afebrile, temperature 97.8 degrees Fahrenheit, pulse 87, respiratory rate 16, blood pressure 160/56, O2 sats were 99%, inspired oxygen concentration at that time was not recorded. When I stopped by to see her, O2 sats were 98% on room air. GENERAL: She is a morbidly obese -[place] female, normocephalic, atraumatic, talking to me in mostly full sentences with mildly increased respiratory effort at times. HEAD, EYES, EARS, NOSE AND THROAT: She is anicteric. No conjunctival erythema. Oropharynx was moist. Mallampati #4 oropharynx. No gross jugular venous distention, no thyromegaly. She does have a large neck circumference. Grossly, there were no palpable lymph nodes in the supraclavicular or submandibular lymph node chains. LUNGS: Auscultation of both lung desir significant mainly for diminished bilateral breath sounds, prolonged expiratory phase. No active wheezing. HEART: Heart sounds 1 and 2 are heard. They were regular in rate and rhythm at the time of my evaluation without overt rubs or murmurs. ABDOMEN: Soft, full, bowel sounds are positive, nontender, no palpable hepatosplenomegaly. EXTREMITIES: Without overt digital clubbing or cyanosis. No pedal edema. Pedal pulses are 2+ bilaterally. NEUROLOGIC: Pupils are equal, round, about 3 mm, reactive to light. Extraocular muscle movements are intact. She moves all 4 extremities spontaneously. SKIN: Normal turgor without overt cellulitis or rash. PSYCHIATRIC: Her mood was normal. Her affect was appropriate. LABORATORY DATA: From my review is as follows: Admission white cell count 8100 with a hemoglobin of 12.4, hematocrit of 37.5, platelet count of 291. INR was 1.04. D-dimer was slightly elevated at 302.7. Serum sodium was 142, potassium 4.4, chloride 104, bicarbonate 21, BUN 12, creatinine 0.8, glucose 110. Hemoglobin A1c elevated at 7.7. Liver function tests within normal limits. Troponin within normal limits. Urinalysis was negative for nitrites and leukocyte esterase and essentially unremarkable. Chest x-ray has been reviewed. I have also reviewed the radiologist's interpretation. I do agree really changes consistent with chronic hyperinflation/COPD. No acute process. Taking the COPD into consideration, she has an element of cardiomegaly. ASSESSMENT: 1. Acute chronic obstructive pulmonary disease exacerbation. 2. Chest pain. 3. Gastroesophageal reflux disease, severe. 4. Morbid obesity. 5. Likely obstructive sleep apnea. 6. History of hypertension. 7. Diabetes. 8. Congestive heart failure. 9. History of arthritis. 10. Hyperlipidemia. 11. Anxiety disorder. 12. Mild metabolic acidosis at presentation. PLAN: I will go ahead and ensure that she is on appropriate controlled therapy for COPD. I do feel the non-formulary inhaler is her inhaled corticosteroids as well as longacting bronchodilators. I will actually taper the systemic steroids and put her on 40 mg IV q. 12. While she is in the hospital, still with some increased work of breathing, I will go ahead and actually schedule her on Brovana and Pulmicort/nebulized treatments and I will stop the home devices for now. I am not too impressed by the elevated D-dimers. I will get bilateral lower extremity Dopplers for trace edema that she has and the chest pain she complains about. She is on GI prophylaxis; however, I will discontinue the Pepcid and make it double dose Protonix and then one-time dose oral Pepcid at night to reduce nighttime acid reflux symptoms. I will empirically put her on bilevel positive air pressure ventilation therapy. She is not sure about her settings, I will go with 14/01 with a backup rate of 10 acutely and see if she can tolerate that. Flu and pneumonia vaccination will be addressed per protocol. She is on appropriate community-acquired pneumonia therapy for severe COPD exacerbation. Cardiology evaluation is ongoing. Thank you very much for the consult. We will follow along and make further recommendations as picture progresses/becomes clearer. JOB# [id number] HORACIO/ROXANNE ANDRE
[2019-07-02] MEDS: BUDESONIDE 0.5 MG/2 ML NEBU IH SCH (23:05)
[2019-07-03] MEDS: ARFORMOTEROL 15 MCG/2 ML NEBU IH SCH ×2 (04:10→08:43)
[2019-07-03] MEDS: methylPREDNISolone Sod Succinate 125 MG/2 ML INJ IV SCH (06:02)
[2019-07-03] MEDS: INSULIN LISPRO 100 UNIT/ML SUB-Q SCH ×2 (08:15→12:42)
[2019-07-03] MEDS: IPRATROPIUM/ALBUTEROL SULFATE 3 ML AMPUL.NEB IH SCH ×2 (08:43→16:02)
[2019-07-03] MEDS: BUDESONIDE 0.5 MG/2 ML NEBU IH SCH (08:43)
[2019-07-03] MEDS: amLODIPine 10 MG TAB PO SCH (10:37)
[2019-07-03] MEDS: HEPARIN 5,000 UNIT/1 ML VIAL SUB-Q SCH (10:37)
[2019-07-03] MEDS: PANTOPRAZOLE 40 MG TAB PO SCH (10:37)
--- NOTE | 2019-07-03 14:06 | Discharge Summary ---
Providers - Providers Date of Admission: 07/01/19 13:03 Date of discharge: 07/03/19 Attending physician: MARLON MANN 07/01/19 18:23 Consult to Physician [CONS] Routine Comment: Consulting Provider: LONNIE DUGAN Physician Instructions: Reason For Exam: copd exacerbation 07/02/19 11:01 Physical Therapy Evaluation and Treat [CONS] Routine Comment: Reason For Exam: weakness Primary care physician: ELEVATOR REPAIRER APPRENTICE Hospitalization Condition: Stable Exam - Constitutional Vitals: Temp Pulse Resp BP Pulse Ox 98.5 F 84 20 146/65 99 07/03/19 08:12 07/03/19 10:37 07/03/19 10:00 07/03/19 10:37 07/03/19 10:00 Plan Activity: advance as tolerated Plan of Treatment: 1.Follow up with PCP in 1 week. 2.Follow up with GI in 1 week 3.Follow up with Dr. Mandel in 1 week Follow up with: PRIMARY CAREMD [Primary Care Provider] - 3-5 Days
[2019-07-03 14:20] VITALS: BP 111/45
--- NOTE | 2019-07-03 14:30 | Progress Note ---
Assessment and Plan Acute chronic obstructive pulmonary disease exacerbation. Chest pain. Gastroesophageal reflux disease, severe. Morbid obesity. Likely obstructive sleep apnea. History of hypertension. Diabetes. Congestive heart failure. History of arthritis. Hyperlipidemia. Anxiety disorder. Mild metabolic acidosis at presentation. 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 re-evaluate in am & prn Subjective Date of service: 07/03/19 Interval history: Patient is seen today for: Seen and examined at bedside; 24hour events reviewed; nursing and respiratory care staff consulted; no adverse overnight events reported to me; sitting up in bed; about to go home; did not wear BIPAP overnight; no emesis or overt aspiration; chest pain is better Objective Vital Signs - 12hr 07/03/19 07/03/19 07/03/19 08:12 10:00 10:37 Temperature 98.5 F Pulse Rate 84 100 H 84 Pulse Rate [ 100 H From Monitor] Pulse Rate [ 84 Right Brachial] Respiratory 20 20 Rate Blood Pressure 146/65 146/65 O2 Sat by Pulse 99 99 Oximetry 07/03/19 14:08 Temperature 98.3 F Pulse Rate 111 H Pulse Rate [ From Monitor] Pulse Rate [ Right Brachial] Respiratory 20 Rate Blood Pressure 111/45 O2 Sat by Pulse 95 Oximetry Constitutional: no acute distress, other (elderly looking obese AAF, normocephalic with normal respiratory effort at rest) Eyes: non-icteric ENT: oropharynx moist, other (Mallampati 4) Neck: supple, no lymphadenopathy, no JVD Effort: mildly labored Ascultation: Bilateral: diminished breath sounds, other (prolonged exp phase) Percussion: Bilateral: not dull Cardiovascular: regular rate and rhythm Gastrointestinal: normoactive bowel sounds, soft, non-tender, non-distended (protuberant) Integumentary: normal Extremities: no cyanosis, pulses normal, no ischemia or petechiae, edema (trace) Neurologic: normal mental status, non-focal exam, pupils equal and round, CN II- XII normal Psychiatric: mood appropriate, affect normal CBC and BMP: 07/02/19 05:32 07/02/19 05:32 ABG, PT/INR, D-dimer: PT/INR, D-dimer PT 13.7 Sec. (12.2-14.9) 07/01/19 10:27 INR 1.04 (0.87-1.13) 07/01/19 10:27 D-Dimer 302.69 ng/mlDDU (0-234) H 07/02/19 12:58 Abnormal lab findings: Abnormal Labs 07/01/19 07/01/19 07/01/19 10:03 10:03 10:06 Lymph % (Auto) 43.9 H Baso % (Auto) 2.0 H Lymph # Baso # 0.2 H Seg Neutrophils % D-Dimer Carbon Dioxide 21 L Glucose 110 H POC Glucose Hemoglobin A1c 7.7 H Albumin 07/01/19 07/01/19 07/02/19 10:27 21:23 05:32 Lymph % (Auto) Baso % (Auto) Lymph # 0.9 L Baso # Seg Neutrophils % 84.6 H D-Dimer Carbon Dioxide Glucose POC Glucose 135 H Hemoglobin A1c Albumin 3.8 L 07/02/19 07/02/19 07/02/19 05:32 07:42 11:29 Lymph % (Auto) Baso % (Auto) Lymph # Baso # Seg Neutrophils % D-Dimer Carbon Dioxide 21 L Glucose 206 H POC Glucose 165 H 198 H Hemoglobin A1c Albumin 07/02/19 07/02/19 07/02/19 12:58 17:20 21:39 Lymph % (Auto) Baso % (Auto) Lymph # Baso # Seg Neutrophils % D-Dimer 302.69 H Carbon Dioxide Glucose POC Glucose 118 H 162 H Hemoglobin A1c Albumin 07/03/19 07/03/19 07:42 11:40 Lymph % (Auto) Baso % (Auto) Lymph # Baso # Seg Neutrophils % D-Dimer Carbon Dioxide Glucose POC Glucose 163 H 232 H Hemoglobin A[address]c [address]in CT scan - chest: image reviewed (no large order P.E.) Allied health notes reviewed: nursing
== END 2019-07-03 14:45 | disposition home or self-care (01) ==
LOC: ED 09:43 → 2B-ACE 13:03
PROVIDERS: ADMIT Internal Medicine; ATTEND Internal Medicine
DX: J44.1 Chronic obstructive pulmonary disease with (acute) exacerbation (principal); J96.01 Acute respiratory failure with hypoxia; J18.9 Pneumonia, unspecified organism; J96.11 Chronic respiratory failure with hypoxia; I11.0 Hypertensive heart disease with heart failure; I50.9 Heart failure, unspecified; F41.1 Generalized anxiety disorder; E11.9 Type 2 diabetes mellitus without complications; M19.90 Unspecified osteoarthritis, unspecified site; F17.213 Nicotine dependence, cigarettes, with withdrawal; Z90.710 Acquired absence of both cervix and uterus; Z99.81 Dependence on supplemental oxygen; Z79.84 Long term (current) use of oral hypoglycemic drugs; Z79.899 Other long term (current) drug therapy
CPT/HCPCS: 36415; 71045; 71275; 80048; 80053; 80076; 81001; 82550; 82553; 82962; 83036; 83690; 83735; 83880; 84439; 84443; 84484; 85025; 85379; 85610; 85730; 86850; 86900; 86901; 87116; 93005; 93010; 93970; 94640; 94760; 96365; 96366; 96372; 96375; 96376; 97161; 99284; A9270; C9113; G0378; J1644; J1956; J2270; J2405; J2785; J2930; J3246; Q9967; 90686; 90732; J1815